=== PATIENT | male | born 1970 | race Caucasian/White ===

== ENCOUNTER 2019-07-21 20:57 | Emergency (ER) | payer SELFPAY ==
[~2019-07-21] VITALS: Ht 172.7 cm; Wt 65.9 kg
[2019-07-21] MEDS ORDERED: NS IV 1000 ML 1,000 ML IV SCH (21:15)
[2019-07-21 21:30] LABS: BASOPHILS % (AUTO) 0 % (0-10); EOSINOPHILS # (AUTO) 0.1 10^3/uL (0.0-0.3); EOSINOPHILS % (AUTO) 2 % (0-10); HEMATOCRIT 46 % (40-54); HEMOGLOBIN 15.3 G/DL (13.3-17.7); LYMPHOCYTES # (AUTO) 1.7 X 10^3 (1.0-4.0); LYMPHOCYTES % (AUTO) 25 % (12-44); MEAN CORPUSCULAR HEMOGLOBIN 33 PG (25-34); MEAN CORPUSCULAR HGB CONC 34 G/DL (32-36); MEAN CORPUSCULAR VOLUME 99 FL (80-99); MEAN PLATELET VOLUME 9.5 FL (7.4-10.4); MONOCYTES % (AUTO) 15 % (0-12); NEUTROPHILS # (AUTO) 3.9 X 10^3 (1.8-7.8); NEUTROPHILS % (AUTO) 58 % (42-75); PLATELET COUNT 329 10^3/uL (130-400); RED CELL DISTRIBUTION WIDTH 13.3 % (10.0-14.5); WHITE BLOOD COUNT 6.8 10^3/uL (4.3-11.0)
[2019-07-21] MEDS ORDERED: ANTACID SUSP 30 ML UDC (MYLANTA) PO ONE (21:45)
[2019-07-21] MEDS ORDERED: LIDOCAINE 2% VISCOUS 15 ML UDC PO ONE (21:45)
[2019-07-21 21:46] LABS: INR 0.9 (0.8-1.4); PROTHROMBIN TIME PATIENT 12.5 SEC (12.2-14.7)
[2019-07-21 21:48] LABS: ALANINE AMINOTRANSFERASE 51 U/L (0-55); ALBUMIN 3.9 GM/DL (3.2-4.5); ALKALINE PHOSPHATASE 90 U/L (40-136); BILIRUBIN,TOTAL 0.2 MG/DL (0.1-1.0); BUN/CREATININE RATIO 10; CALCIUM 7.9 MG/DL (8.5-10.1); CARBON DIOXIDE 21 MMOL/L (21-32); CHLORIDE 108 MMOL/L (98-107); CREATININE SERUM 0.82 MG/DL (0.60-1.30); GFR ESTIMATED > 60; GLUCOSE 106 MG/DL (70-105); LIPASE 182 U/L (8-78); POTASSIUM 3.6 MMOL/L (3.6-5.0); SODIUM 142 MMOL/L (135-145); TOTAL PROTEIN 6.3 GM/DL (6.4-8.2)
--- NOTE | 2019-07-21 21:50 | Diagnostic Imaging Report ---
PROCEDURE: CT abdomen and pelvis without contrast. TECHNIQUE: Multiple contiguous axial images were obtained through the abdomen and pelvis without the use of intravenous contrast. Auto Exposure Controls were utilized during the CT exam to meet ALARA standards for radiation dose reduction. INDICATION: Epigastric pain The liver, gallbladder and bile ducts are normal. The spleen, pancreas and adrenals are normal. The kidneys, ureters and bladder are normal. There are several mildly dilated loops of small bowel with mild mucosal edema involving the jejunum which may be secondary to an enteritis. No obstruction or perforation is evident. No acute abnormality of the colon is seen. There is no free intraperitoneal air or fluid. The appendix is normal. There is no acute bony abnormality. IMPRESSION: Mild enteritis of the jejunum. No other acute abnormality is seen. Dictated by: Dictated on workstation # [id number]
--- NOTE | 2019-07-21 22:01 | ED GI ---
General Chief Complaint: Abdominal/GI Problems Stated Complaint: RIB PAIN, STOMACH PAIN, PASSING OUT Nursing Triage Note: PT TO ED W/ FRIENDS FOR C/O "PASSING OUT". PT REPORTS HE HAS BEEN DRINKING BEER "ALL DAY" AND DOES THIS DAILY BUT TODAY "FEELS WORSE". ALSO C/O RIB PAIN BUT DENIES INJURY. Sepsis Screen: No Definite Risk Source of Information: Patient Exam Limitations: No Limitations History of Present Illness Date Seen by Provider: Jul 21, 2019 Time Seen by Provider: 21:55 Initial Comments To ER with reports of having passed out earlier today. His friend found him unresponsive on the floor, woke him up and brought into the emergency room. He has long been an alcoholic drinking about 6 "tall boys" per day. Over the past 2 weeks he has drank less because he has been working. Starting yesterday and today he's been drinking more including fireball and 8 tall boys today. He also has some epigastric/left lateral upper abdominal pain vomiting no nausea. Timing/Duration: 1-2 Days Severity/Quality: Moderate Location: Epigastric Radiation: No Radiation Activities at Onset: None Allergies and Home Medications Allergies Uncoded Allergies: IV CONTRAST (Allergy, Unknown, 07/21/19) Patient Home Medication List Home Medication List Reviewed: Yes Review of Systems Review of Systems Constitutional: see HPI EENTM: No Symptoms Reported Respiratory: No Symptoms Reported Cardiovascular: No Symptoms Reported Gastrointestinal: See HPI, Abdominal Pain Genitourinary: No Symptoms Reported Musculoskeletal: no symptoms reported Skin: no symptoms reported Endocrine: No Symptoms Reported Hematologic/Lymphatic: No Symptoms Reported Past Bqvkylx-Tudpoj-Iubtdj Hx Patient Social History Alcohol Use: Regular Use Number of Drinks Today: 8 Alcohol Beverage of Choice: Beer, Other Recreational Drug Use: No Smoking Status: Current Everyday Smoker Type Used: Cigarettes Recent Foreign Travel: No Contact w/Someone Who Travel: No Recent Infectious Disease Expo: No Physical Abuse: No Sexual Abuse: No Mistreated: No Past Medical History Surgeries: Yes Orthopedic Respiratory: No Cardiac: No Neurological: No Genitourinary: No Gastrointestinal: No Musculoskeletal: No Endocrine: No HEENT: No Cancer: No Psychosocial: No Integumentary: No Blood Disorders: No Physical Exam Vital Signs Vital Signs - First Documented 07/21/19 21:03 Temp 36.7 Pulse 94 Resp 20 B/P (MAP) 133/87 (102) Pulse Ox 98 O2 Delivery Room Air Capillary Refill : Less Than 3 Seconds Height/Weight/BMI Height: '" Weight: lbs. oz. kg; 22.00 BMI Method: General Appearance: WD/WN, no apparent distress HEENT: PERRL/EOMI, normal ENT inspection Respiratory: no respiratory distress, no accessory muscle use Gastrointestinal: normal bowel sounds, non tender, soft; No tenderness Extremities: normal range of motion, non-tender Neurologic/Psychiatric: alert, normal mood/affect, oriented x 3 Skin: normal color, warm/dry Progress/Results/Core Measures Results/Orders Lab Results Laboratory Tests Test 07/21/19 21:20 Range/Units White Blood Count 6.8 4.3-11.0 10^3/uL Red Blood Count 4.63 4.35-5.85 10^6/uL Hemoglobin 15.3 13.3-17.7 G/DL Hematocrit 46 40-54 % Mean Corpuscular Volume 99 80-99 FL Mean Corpuscular Hemoglobin 33 25-34 PG Mean Corpuscular Hemoglobin Concent 34 32-36 G/DL Red Cell Distribution Width 13.3 10.0-14.5 % Platelet Count 329 130-400 10^3/uL Mean Platelet Volume 9.5 7.4-10.4 FL Neutrophils (%) (Auto) 58 42-75 % Lymphocytes (%) (Auto) 25 12-44 % Monocytes (%) (Auto) 15 H 0-12 % Eosinophils (%) (Auto) 2 0-10 % Basophils (%) (Auto) 0 0-10 % Neutrophils # (Auto) 3.9 1.8-7.8 X 10^3 Lymphocytes # (Auto) 1.7 1.0-4.0 X 10^3 Monocytes # (Auto) 1.0 0.0-1.0 X 10^3 Eosinophils # (Auto) 0.1 0.0-0.3 10^3/uL Basophils # (Auto) 0.0 0.0-0.1 10^3/uL Prothrombin Time 12.5 12.2-14.7 SEC INR Comment 0.9 0.8-1.4 Sodium Level 142 135-145 MMOL/L Potassium Level 3.6 3.6-5.0 MMOL/L Chloride Level 108 H 98-107 MMOL/L Carbon Dioxide Level 21 21-32 MMOL/L Anion Gap 13 5-14 MMOL/L Blood Urea Nitrogen 8 7-18 MG/DL Creatinine 0.82 0.60-1.30 MG/DL Estimat Glomerular Filtration Rate > 60 BUN/Creatinine Ratio 10 Glucose Level 106 H 70-105 MG/DL Calcium Level 7.9 L 8.5-10.1 MG/DL Corrected Calcium 8.0 L 8.5-10.1 MG/DL Total Bilirubin 0.2 0.1-1.0 MG/DL Aspartate Amino Transf (AST/SGOT) 47 H 5-34 U/L Alanine Aminotransferase (ALT/SGPT) 51 0-55 U/L Alkaline Phosphatase 90 40-136 U/L Total Protein 6.3 L 6.4-8.2 GM/DL Albumin 3.9 3.2-4.5 GM/DL Lipase 182 H 8-78 U/L Serum Alcohol 341 *H <10 MG/DL My Orders Orders - CORA LAY MOWER SHARPENER Cbc With Automated Diff (07/21/19 21:13) Comprehensive Metabolic Panel (07/21/19 21:13) Lipase (07/21/19 21:13) Alcohol (07/21/19 21:13) Protime With Inr (07/21/19 21:13) Ed Iv/Invasive Line Start (07/21/19 21:13) Ns Iv 1000 Ml (Sodium Chloride 0.9%) (07/21/19 21:15) Antacid Suspension (Mylanta Suspension (07/21/19 21:45) Lidocaine 2% Viscous 15 Ml (Xylocaine Vi (07/21/19 21:45) Ct Abdomen/Pelvis Wo (07/21/19 21:31) Medications Given in ED Current Medications Medications Dose Ordered Sig/Reginald Route Start Time Stop Time Status Last Admin Dose Admin Al Hydrox/Mg Hydrox/Simethicone 30 ml ONCE ONCE PO 07/21/19 21:45 07/21/19 21:46 DC 07/21/19 21:36 30 ML Lidocaine HCl 10 ml ONCE ONCE PO 07/21/19 21:45 07/21/19 21:46 DC 07/21/19 21:36 10 ML Vital Signs/I&O 07/21/19 21:03 Temp 36.7 Pulse 94 Resp 20 B/P (MAP) 133/87 (102) Pulse Ox 98 O2 Delivery Room Air Blood Pressure Mean: 102 Departure Impression Primary Impression: Alcoholism Additional Impression: Alcohol intoxication Disposition: 01 HOME, SELF-CARE Condition: Stable Departure-Patient Inst. Decision time for Depature: 21:58 Referrals: NO,LOCAL PHYSICIAN (PCP/Family) Primary Care Physician Patient Instructions: Gastritis (DC) Add. Discharge Instructions: 1. [facility] Dr[facility] if you wish to discuss stopping the alcohol use, she can help facilitate this in the outpatient setting. 2. Return to ER for any worsening pain or other concerns. All discharge instructions reviewed with patient and/or family. Voiced understanding. CORA LAY APRN Jul 21, 2019 22:01
[2019-07-21 22:10] VITALS: BP 142/78
--- OUTSIDE RECORDS SUMMARY | 2019-07-22 22:09 | XMS REPORT | Continuity of Care Document ---
Demographics Preferred Language Unknown Marital Status Unknown Advent Affiliation Unknown Race Unknown Ethnic Group Unknown Author Organization Unknown Address Unknown Phone Unavailable Allergies There is no data. Medications There is no data. Problems There is no data. Procedures There is no data. Results Test Result Range Complete blood count (CBC) with automate d white blood cell (WBC) differential - 07/21/19 21:20 Blood leukocytes automated count (number/volume) 6.8 10*3/uL 4.3-11.0 Blood erythrocytes automated count (number/volume) 4.63 10*6/uL 4.35-5.85 Venous blood hemoglobin measurement (mass/volume) 15.3 g/dL 13.3-17.7 Blood hematocrit (volume fraction) 46 % 40-54 Automated erythrocyte mean corpuscular volume 99 [ foz_us] 80-99 Automated erythrocyte mean corpuscular h emoglobin (mass per erythrocyte) 33 pg 25-34 Automated erythrocyte mean corpuscular h emoglobin concentration measurement (mass/volume) 34 g/dL 32-36 Automated erythrocyte distribution width ratio 13. 3 % 10.0- 14.5 Automated blood platelet count (count/volume) 329 10*3/uL 130-400 Automated blood platelet mean volume measurement 9.5 [foz_us] 7.4-10.4 Automated blood neutrophils/100 leukocytes 58 % 42-75 Automated blood lymphocytes/100 leukocytes 25 % 12-44 Blood monocytes/100 leukocytes 15 % 0-12 Automated blood eosinophils/100 leukocytes 2 % 0-10 Automated blood basophils/100 leukocytes 0 % 0-10 Blood neutrophils automated count (number/volume) 3.9 10*3 1.8-7.8 Blood lymphocytes automated count (number/volume) 1.7 10*3 1.0-4.0 Blood monocytes automated count (number/volume) 1. 0 10*3 0.0-1.0 Automated eosinophil count 0.1 10*3/uL 0 .0-0.3 Automated blood basophil count (count/volume) 0.0 10*3/uL 0.0-0.1 Comprehensive metabolic panel - 07/21/19 21:20 Serum or plasma sodium measurement (moles/volume) 142 mmol/L 135-145 Serum or plasma potassium measurement (moles/volume) 3.6 mmol/L 3.6-5.0 Serum or plasma chloride measurement (moles/volume) 108 mmol/L 98-107 Carbon dioxide 21 mmol/L 21-32 Serum or plasma anion gap determination (moles/volume) 13 mmol/L 5-14 Serum or plasma urea nitrogen measurement (mass/volume ) 8 mg/dL 7-18 Serum or plasma creatinine measurement (mass/volume) 0.82 mg/dL 0.60-1.30 Serum or plasma urea nitrogen/creatinine mass ratio 10 NRG Serum or plasma creatinine measurement w ith calculation of estimated glomerular filtration rate > NRG Serum or plasma glucose measurement (mass/volume) 106 mg/dL 70-105 Serum or plasma calcium measurement (mass/volume) 7.9 mg/dL 8.5-10.1 Serum or plasma total bilirubin measurement (mass/volu me) 0.2 mg/dL 0.1-1.0 Serum or plasma alkaline phosphatase javier surement (enzymatic activity/volume) 90 U/L 40-136 Serum or plasma aspartate aminotransfera se measurement (enzymatic activity/volume) 47 U/L 5-34 Serum or plasma alanine aminotransferase measurement (enzymatic activity/volume) 51 U/L 0-55 Serum or plasma protein measurement (mass/volume) 6.3 g/dL 6.4-8.2 Serum or plasma albumin measurement (mass/volume) 3.9 g/dL 3.2-4.5 CALCIUM CORRECTED 8.0 mg/dL 8.5-10.1 Lipase - 07/21/19 21:20 Lipase 182 U/L 8-78 PT panel in platelet poor plasma by coag ulation assay - 07/21/19 21:20 Prothrombin time (PT) in platelet poor plasma by coagu lation assay 12.5 s 12.2-14.7 INR in platelet poor plasma or blood by coagulation as say 0.9 0.8-1.4 Serum or plasma ethanol measurement (mas s/volume) - 07/21/19 21:20 Serum or plasma ethanol measurement (mass/volume) 341 mg/dL <10 Encounters ACCT No. Visit Date/Time Discharge Status Pt. Type Provider Facility Loc./Unit Complaint [id number] 07/21/2019 21:33:00 Document Registration
== END 2019-07-21 22:10 | disposition home or self-care (01) ==
LOC: ER 21:00
DX: F10.229 Alcohol dependence with intoxication, unspecified (principal); F17.210 Nicotine dependence, cigarettes, uncomplicated; Z91.041 Radiographic dye allergy status; Y90.8 Blood alcohol level of 240 mg/100 ml or more
CPT/HCPCS: 36415; 74176; 80053; 80320; 83690; 85025; 85610

== ENCOUNTER 2020-04-11 09:51 | Emergency (ER) | payer SELFPAY ==
[~2020-04-11] VITALS: Ht 172.7 cm; Wt 63.5 kg
[2020-04-11 10:17] LABS: BASOPHILS # (AUTO) 0.1 10^3/uL (0.0-0.1); BASOPHILS % (AUTO) 1 % (0-10); EOSINOPHILS # (AUTO) 0.1 10^3/uL (0.0-0.3); EOSINOPHILS % (AUTO) 2 % (0-10); HEMATOCRIT 53 % (40-54); HEMOGLOBIN 18.2 g/dL (13.3-17.7); LYMPHOCYTES # (AUTO) 1.9 10^3/uL (1.0-4.0); LYMPHOCYTES % (AUTO) 37 % (12-44); MEAN CORPUSCULAR HEMOGLOBIN 34 pg (25-34); MEAN CORPUSCULAR HGB CONC 35 g/dL (32-36); MEAN CORPUSCULAR VOLUME 97 fL (80-99); MEAN PLATELET VOLUME 9.5 fL (9.0-12.2); MONOCYTES # (AUTO) 0.6 10^3/uL (0.0-1.0); MONOCYTES % (AUTO) 12 % (0-12); NEUTROPHILS # (AUTO) 2.4 10^3/uL (1.8-7.8); NEUTROPHILS % (AUTO) 48 % (42-75); PLATELET COUNT 358 10^3/uL (130-400)
[2020-04-11 10:21] LABS: ALBUMIN 4.2 GM/DL (3.2-4.5); CHLORIDE 102 MMOL/L (98-107); POTASSIUM 3.4 MMOL/L (3.6-5.0); SODIUM 143 MMOL/L (135-145)
[2020-04-11 10:23] LABS: CALCIUM 8.4 MG/DL (8.5-10.1)
[2020-04-11 10:24] LABS: GLUCOSE 122 MG/DL (70-105)
[2020-04-11 10:25] LABS: CARBON DIOXIDE 25 MMOL/L (21-32)
[2020-04-11 10:26] LABS: BILIRUBIN,TOTAL 0.3 MG/DL (0.1-1.0)
[2020-04-11 10:27] LABS: ALKALINE PHOSPHATASE 123 U/L (40-136); CREATININE SERUM 0.86 MG/DL (0.60-1.30); GFR ESTIMATED > 60
[2020-04-11 10:28] LABS: BUN/CREATININE RATIO 3
[2020-04-11 10:30] LABS: ALANINE AMINOTRANSFERASE 65 U/L (0-55); MAGNESIUM 2.3 MG/DL (1.6-2.4)
[2020-04-11] MEDS ORDERED: LORazepam INJ 2 MG/ML (ATIVAN) VIAL IVP ONE ×2 (10:30→13:30)
[2020-04-11] MEDS ORDERED: fentaNYL INJECTION 100 MCG/2 ML AMP IVP ONE (10:30)
[2020-04-11 10:51] LABS: AMPHETAMINE SCREEN, URINE NEGATIVE (NEGATIVE); BARBITURATE SCREEN URINE NEGATIVE (NEGATIVE); BENZODIAZEPINES SCREEN URINE NEGATIVE (NEGATIVE); CANNABINOID SCREEN, URINE POSITIVE (NEGATIVE); COCAINE SCREEN URINE NEGATIVE (NEGATIVE); METHADONE STAT NEGATIVE (NEGATIVE); METHAMPHETAMINE SCREEN URINE S NEGATIVE (NEGATIVE); OPIATE SCREEN URINE NEGATIVE (NEGATIVE); OXYCODONE STAT NEGATIVE (NEGATIVE); PROPOXYPHENE STAT NEGATIVE (NEGATIVE); TRICYCLIC ANTIDEPRESSANTS SCRE NEGATIVE (NEGATIVE)
--- NOTE | 2020-04-11 11:19 | Diagnostic Imaging Report ---
INDICATION: Chest pain. TECHNIQUE: Single view chest 11:08 AM. CORRELATION STUDY: None FINDINGS: The heart size, mediastinal configuration and pulmonary vascularity are within normal limits. The lungs are clear with no consolidating infiltrate. There is no significant effusion or pneumothorax. IMPRESSION: 1. Negative appearing portable chest. Dictated by: Dictated on workstation # [id number]
--- NOTE | 2020-04-11 12:08 | Diagnostic Imaging Report ---
PROCEDURE: CT head and CT cervical spine without contrast. TECHNIQUE: Multiple contiguous axial images were obtained through the brain and cervical spine without the use of intravenous contrast. Sagittal and coronal reformations through the cervical spine were then performed. Auto Exposure Controls were utilized during the CT exam to meet ALARA standards for radiation dose reduction. INDICATION: Found itself on floor earlier today. Left arm tingling. CORRELATION STUDY: None FINDINGS: CT HEAD: Ventricles and sulci are slightly prominent for the patient's age. There is no evidence for midline shift or mass effect. There is questionable subtle slight asymmetric low density within the left mirza. Otherwise, no evidence for edema. There is some generalized increased density in the intracranial vessels may reflect underlying hemoconcentration. No intracranial hemorrhage. Basilar cisterns are maintained. The bony calvarium appearing intact. Small cyst or polyp anterior left maxillary sinus. CT CERVICAL SPINE: Trace anterolisthesis C5 on C6. Slight loss of height C6 and to a lesser degree superior C7 endplate. Multilevel disc space narrowing is present. This is most pronounced C6-C7 level. Endplate spurring results in some osseous encroachment on neural foramina at this level as well as at the C5-C6 level. Asymmetric hypertrophic facet arthropathy. Odontoid intact. Lateral masses C1-C2 aligned. Lung apices with a small bullous emphysematous change. No apical pneumothorax. IMPRESSION: CT HEAD: 1. There is subtle low-attenuation left mirza. May be artifactual perhaps chronic. Definitive evidence for edema is not suggested. No intracranial hemorrhage. CT CERVICAL SPINE: 1. Negative for acute fracture or traumatic subluxation. Multiple cervical spondylosis. Most pronounced at C6-C7 level. Dictated by: Dictated on workstation # [id number]
--- NOTE | 2020-04-11 12:46 | Diagnostic Imaging Report ---
PROCEDURE: CT chest without contrast. TECHNIQUE: Multiple contiguous axial images were obtained through the chest without the use of intravenous contrast. Auto Exposure Controls were utilized during the CT exam to meet ALARA standards for radiation dose reduction. INDICATION: Chest pain. COMPARISON: Radiographs from the same day. FINDINGS: The heart is normal in size. There is no pericardial effusion. There is no mediastinal adenopathy. The aorta is normal in caliber. There is no axillary adenopathy. There is no pleural effusion or pneumothorax. There are mild emphysematous changes in the lungs. No central endobronchial lesions are seen. No masses or consolidations are seen. No acute osseous abnormality is seen. Imaged portions of the upper abdomen demonstrate no acute abnormality. IMPRESSION: 1. Mild emphysematous changes with no acute abnormality seen in the chest. Dictated by: Dictated on workstation # [id number]
--- NOTE | 2020-04-11 14:13 | ED Chest Pain ---
General Chief Complaint: Chest Pain Stated Complaint: CP, LEFT ARM NUMBNESS Nursing Triage Note: PT AMB TO RM 2 WITH COMPLAINT OF CHEST PAIN. UNKNOWN WHEN PAIN STARTED. STATES PASSED OUT LAST NIGHT AROUND 10PM. STATES LEFT ARM IS NUMB. PT DRINKS AT LEAST 6 TALL BOYS DAILY. Nursing Sepsis Screen: No Definite Risk Source: patient Exam Limitations: no limitations History of Present Illness Date Seen by Provider: Apr 11, 2020 Time Seen by Provider: 10:09 Initial Comments This 49-year-old man presents to the emergency room with complaints of left upper chest pain and left arm numbness. He reports he "passed out" on his floor last night and woke up face down at about 03: 00 this morning. He claims to have not had any alcohol yet today but does typically drink up to 12 tall cans of beer daily. He has had pain in the left upper chest previously which he attributed to a strained muscle. Pain is reproducible with palpation. It feels better when he is up and walking around and worse at rest. He denies any cough or fever. He denies any chronic health problems aside from alcohol dependence. He denies any other substance use. He does report some posterior neck pain and thinks he may have hit his head. C-collar was applied. Allergies and Home Medications Allergies Coded Allergies: codeine (Verified Allergy, Unknown, 04/11/20) Uncoded Allergies: IV CONTRAST (Allergy, Unknown, 07/21/19) Patient Home Medication List Home Medication List Reviewed: Yes Review of Systems Review of Systems Constitutional: no symptoms reported EENTM: No Symptoms Reported Respiratory: No Symptoms Reported Cardiovascular: See HPI Gastrointestinal: No Symptoms Reported Genitourinary: No Symptoms Reported Musculoskeletal: see HPI Skin: no symptoms reported Psychiatric/Neurological: See HPI Endocrine: No Symptoms Reported Hematologic/Lymphatic: No Symptoms Reported Past Eemepfa-Sgeaoo-Xcnkjb Hx Past Med/Social Hx: Reviewed Nursing Past Med/Soc Hx Patient Social History Alcohol Use: Regular Use Number of Drinks Today: II Alcohol Beverage of Choice: Beer, Other Recreational Drug Use: No Smoking Status: Current Everyday Smoker Type Used: Cigarettes Recent Foreign Travel: No Contact w/Someone Who Travel: No Recent Infectious Disease Expo: No Immunizations Up To Date Tetanus Booster (TDap): Unknown Past Medical History Surgeries: Yes Orthopedic Respiratory: No Cardiac: No Neurological: No Genitourinary: No Gastrointestinal: No Musculoskeletal: No Endocrine: No HEENT: No Cancer: No Psychosocial: No Integumentary: No Blood Disorders: No Physical Exam Vital Signs Vital Signs - First Documented 04/11/20 14:41 Pulse Ox 98 Capillary Refill : Less Than 3 Seconds Height, Weight, BMI Height: '" Weight: lbs. oz. kg; 21.00 BMI Method: General Appearance: No Apparent Distress, WD/WN, Thin HEENT: Normal ENT Inspection Neck: Normal Inspection, Tender Midline Respiratory: Lungs Clear, Normal Breath Sounds, No Accessory Muscle Use, No Respiratory Distress, Other (Upper left anterior chest wall tender to palpation) Cardiovascular: Regular Rate, Rhythm, No Edema, No Murmur, Normal Peripheral Pulses Gastrointestinal: Normal Bowel Sounds, Non Tender, Soft Extremity: Normal Inspection, Non Tender, No Pedal Edema Neurologic/Psychiatric: Alert, Oriented x3, No Motor/Sensory Deficits, Normal Mood/Affect, head of operation and logistics II-XII Norm as Tested Skin: Normal Color, Warm/Dry Progress/Results/Core Measures Results/Orders Lab Results Laboratory Tests Test 04/11/20 10:05 04/11/20 10:31 04/11/20 13:56 Range/Units White Blood Count 5.0 4.3-11.0 10^3/uL Red Blood Count 5.42 4.30-5.52 10^6/uL Hemoglobin 18.2 H 13.3-17.7 g/dL Hematocrit 53 40-54 % Mean Corpuscular Volume 97 80-99 fL Mean Corpuscular Hemoglobin 34 25-34 pg Mean Corpuscular Hemoglobin Concent 35 32-36 g/dL Red Cell Distribution Width 12.6 10.0-14.5 % Platelet Count 358 130-400 10^3/uL Mean Platelet Volume 9.5 9.0-12.2 fL Immature Granulocyte % (Auto) 0 % Neutrophils (%) (Auto) 48 42-75 % Lymphocytes (%) (Auto) 37 12-44 % Monocytes (%) (Auto) 12 0-12 % Eosinophils (%) (Auto) 2 0-10 % Basophils (%) (Auto) 1 0-10 % Neutrophils # (Auto) 2.4 1.8-7.8 10^3/uL Lymphocytes # (Auto) 1.9 1.0-4.0 10^3/uL Monocytes # (Auto) 0.6 0.0-1.0 10^3/uL Eosinophils # (Auto) 0.1 0.0-0.3 10^3/uL Basophils # (Auto) 0.1 0.0-0.1 10^3/uL Immature Granulocyte # (Auto) 0.0 0.0-0.1 10^3/uL Prothrombin Time 13.0 12.2-14.7 SEC INR Comment 1.0 0.8-1.4 Activated Partial Thromboplast Time 28 24-35 SEC D-Dimer < 0.27 0.00-0.49 UG/ML Sodium Level 143 135-145 MMOL/L Potassium Level 3.4 L 3.6-5.0 MMOL/L Chloride Level 102 98-107 MMOL/L Carbon Dioxide Level 25 21-32 MMOL/L Anion Gap 16 H 5-14 MMOL/L Blood Urea Nitrogen 3 L 7-18 MG/DL Creatinine 0.86 0.60-1.30 MG/DL Estimat Glomerular Filtration Rate > 60 BUN/Creatinine Ratio 3 Glucose Level 122 H 70-105 MG/DL Calcium Level 8.4 L 8.5-10.1 MG/DL Corrected Calcium 8.2 L 8.5-10.1 MG/DL Magnesium Level 2.3 1.6-2.4 MG/DL Total Bilirubin 0.3 0.1-1.0 MG/DL Aspartate Amino Transf (AST/SGOT) 78 H 5-34 U/L Alanine Aminotransferase (ALT/SGPT) 65 H 0-55 U/L Alkaline Phosphatase 123 40-136 U/L Myoglobin 35.9 10.0-92.0 NG/ML Troponin I < 0.028 < 0.028 <0.028 NG/ML C-Reactive Protein High Sensitivity 0.05 0.00-0.50 MG/DL Total Protein 7.0 6.4-8.2 GM/DL Albumin 4.2 3.2-4.5 GM/DL Serum Alcohol 271 H <10 MG/DL Urine Opiates Screen NEGATIVE NEGATIVE Urine Oxycodone Screen NEGATIVE NEGATIVE Urine Methadone Screen NEGATIVE NEGATIVE Urine Propoxyphene Screen NEGATIVE NEGATIVE Urine Barbiturates Screen NEGATIVE NEGATIVE Ur Tricyclic Antidepressants Screen NEGATIVE NEGATIVE Urine Phencyclidine Screen NEGATIVE NEGATIVE Urine Amphetamines Screen NEGATIVE NEGATIVE Urine Methamphetamines Screen NEGATIVE NEGATIVE Urine Benzodiazepines Screen NEGATIVE NEGATIVE Urine Cocaine Screen NEGATIVE NEGATIVE Urine Cannabinoids Screen POSITIVE H NEGATIVE My Orders Orders - KUSUM BAILEY MD Cbc With Automated Diff (04/11/20 10:10) Magnesium (04/11/20 10:10) Chest 1 View, Ap/Pa Only (04/11/20 10:10) Ekg Tracing (04/11/20 10:10) Comprehensive Metabolic Panel (04/11/20 10:10) Myoglobin Serum (04/11/20 10:10) Protime With Inr (04/11/20 10:10) Partial Thromboplastin Time (04/11/20 10:10) O2 (04/11/20 10:10) Monitor-Rhythm Ecg Trace Only (04/11/20 10:10) Ed Iv/Invasive Line Start (04/11/20 10:10) Troponin I (04/11/20 10:10) Ct Head/Cervical Spine Wo (04/11/20 10:18) Alcohol (04/11/20 10:18) Drug Screen Stat (Urine) (04/11/20 10:18) Fentanyl Injection (Sublimaze Injection (04/11/20 10:30) Lorazepam Injection (Ativan Injection) (04/11/20 10:30) Fibrin Degradation Products (04/11/20 10:19) Hs C Reactive Protein (04/11/20 10:27) Ct Chest Wo (04/11/20 11:28) Lorazepam Injection (Ativan Injection) (04/11/20 13:30) Troponin I (04/11/20 13:30) Medications Given in ED Current Medications Medications Dose Ordered Sig/Reginald Route Start Time Stop Time Status Last Admin Dose Admin Fentanyl Citrate 50 mcg ONCE ONCE IVP 04/11/20 10:30 04/11/20 10:31 DC 04/11/20 10:32 50 MCG Lorazepam 1 mg ONCE ONCE IVP 04/11/20 10:30 04/11/20 10:31 DC 04/11/20 10:32 1 MG Lorazepam 2 mg ONCE ONCE IVP 04/11/20 13:30 04/11/20 13:31 DC 04/11/20 13:24 2 MG Vital Signs/I&O 04/11/20 04/11/20 04/11/20 09:56 09:56 14:41 Temp 36.4 Pulse 92 82 Resp 17 17 B/P (MAP) 155/118 (130) 122/76 Pulse Ox 98 O2 Delivery Room Air Room Air Room Air Blood Pressure Mean: 130 Progress Progress Note #1: Time: 10:30 Progress Note C-collar was applied and labs and imaging studies were obtained. EKG was negative for ischemia. Patient appeared to possibly be an early withdraw. He was treated with fentanyl and Ativan. Progress Note #2: Time: 14:13 Progress Note C-collar was cleared after CT imaging was reviewed. No serious injuries were identified. Patient's numbness in the left arm has improved as has his chest pain. A repeat troponin is pending. I suspect patient had "beer drinkers palsy" paresthesias in the left upper extremity from lying in the facedown position on the floor while intoxicated. Alcohol level was still significantly elevated despite his assertion he has not had alcohol yet today. Chest pain seems to be noncardiac in nature as it is reproducible with palpation. I anticipate discharge if troponin is negative. Patient was given an additional 2 mg of Ativan due to worsening tremor probably due to withdrawal. Initial ECG Impression Date: Apr 11, 2020 Initial ECG Impression Time: 09:59 Initial ECG Rate: 96 Initial ECG Rhythm: Normal Sinus Initial ECG Intervals: Normal Initial ECG Impression: Normal Comment Normal sinus rhythm with no ST elevation or depression. No abnormal intervals or axis deviation. Diagnostic Imaging Diagonstic Imaging: Xray Plain Films/CT/US/NM/MRI: chest Comments NAME: TRISHA CHAUDHRY [facility] REC#: [id number] PT STATUS: REG ER : 1970 PHYSICIAN: KUSUM BAILEY MD ADMIT DATE: 04/11/20/ER Draft Date of Exam:04/11/20 CHEST 1 VIEW, AP/PA ONLY INDICATION: Chest pain. TECHNIQUE: Single view chest 11:08 AM. CORRELATION STUDY: None FINDINGS: The heart size, mediastinal configuration and pulmonary vascularity are within normal limits. The lungs are clear with no consolidating infiltrate. There is no significant effusion or pneumothorax. IMPRESSION: 1. Negative appearing portable chest. Dictated on workstation # [id number] Dict: 04/11/20 1118 Trans: 04/11/20 1118 DO [id number] Interpreted by: MANDY TOVAR DO Reviewed: Reviewed by Me Diagonstic Imaging: CT Plain Films/CT/US/NM/MRI: c-spine, head Comments NAME: TRISHA CHAUDHRY REC#: [id number] PT STATUS: REG ER : 1970 PHYSICIAN: KUSUM BAILEY MD ADMIT DATE: 04/11/20/ER Draft Date of Exam:04/11/20 CT HEAD/CERVICAL SPINE WO PROCEDURE: CT head and CT cervical spine without contrast. TECHNIQUE: Multiple contiguous axial images were obtained through the brain and cervical spine without the use of intravenous contrast. Sagittal and coronal reformations through the cervical spine were then performed. Auto Exposure Controls were utilized during the CT exam to meet ALARA standards for radiation dose reduction. INDICATION: Found itself on floor earlier today. Left arm tingling. CORRELATION STUDY: None FINDINGS: CT HEAD: Ventricles and sulci are slightly prominent for the patient's age. There is no evidence for midline shift or mass effect. There is questionable subtle slight asymmetric low density within the left mirza. Otherwise, no evidence for edema. There is some generalized increased density in the intracranial vessels may reflect underlying hemoconcentration. No intracranial hemorrhage. Basilar cisterns are maintained. The bony calvarium appearing intact. Small cyst or polyp anterior left maxillary sinus. CT CERVICAL SPINE: Trace anterolisthesis C5 on C6. Slight loss of height C6 and to a lesser degree superior C7 endplate. Multilevel disc space narrowing is present. This is most pronounced C6-C7 level. Endplate spurring results in some osseous encroachment on neural foramina at this level as well as at the C5-C6 level. Asymmetric hypertrophic facet arthropathy. Odontoid intact. Lateral masses C1-C2 aligned. Lung apices with a small bullous emphysematous change. No apical pneumothorax. IMPRESSION: CT HEAD: 1. There is subtle low-attenuation left mirza. May be artifactual perhaps chronic. Definitive evidence for edema is not suggested. No intracranial hemorrhage. CT CERVICAL SPINE: 1. Negative for acute fracture or traumatic subluxation. Multiple cervical spondylosis. Most pronounced at C6-C7 level. Dictated on workstation # [id number] Dict: 04/11/20 1155 Trans: 04/11/20 1207 ANTOINE [id number] Interpreted by: MANDY TOVAR DO Reviewed: Reviewed by Me Diagonstic Imaging: CT Plain Films/CT/US/NM/MRI: chest Comments NAME: TRISHA CHAUDHRY REC#: [id number] PT STATUS: REG ER : 1970 PHYSICIAN: KUSUM BAILEY MD ADMIT DATE: 04/11/20/ER Draft Date of Exam:04/11/20 CT CHEST WO PROCEDURE: CT chest without contrast. TECHNIQUE: Multiple contiguous axial images were obtained through the chest without the use of intravenous contrast. Auto Exposure Controls were utilized during the CT exam to meet ALARA standards for radiation dose reduction. INDICATION: Chest pain. COMPARISON: Radiographs from the same day. FINDINGS: The heart is normal in size. There is no pericardial effusion. There is no mediastinal adenopathy. The aorta is normal in caliber. There is no axillary adenopathy. There is no pleural effusion or pneumothorax. There are mild emphysematous changes in the lungs. No central endobronchial lesions are seen. No masses or consolidations are seen. No acute osseous abnormality is seen. Imaged portions of the upper abdomen demonstrate no acute abnormality. IMPRESSION: 1. Mild emphysematous changes with no acute abnormality seen in the chest. Dictated on workstation # [id number] Dict: 04/11/20 1240 Trans: 04/11/20 1245 [facility] [id number] Interpreted by: JOAO VAIL MD Departure Impression Primary Impression: Atypical chest pain Additional Impressions: Paresthesia of left arm Alcohol dependence Qualified Codes: F10.29 - Alcohol dependence with unspecified alcohol- induced disorder Alcohol withdrawal Qualified Codes: F10.239 - Alcohol dependence with withdrawal, unspecified Disposition: 01 HOME, SELF-CARE Condition: Improved Departure-Patient Inst. Referrals: NO,LOCAL PHYSICIAN (PCP/Family) Primary Care Physician Patient Instructions: ALCOHOL AND SUBSTANCE ABUSE, Alcohol Withdrawal Add. Discharge Instructions: Gradually and progressively reduce your alcohol consumption but avoid abruptly stopping alcohol completely. Doing so may cause life-threatening withdrawals. Follow-up with a primary care provider soon as possible. Seek assistance with alcohol cessation through your primary care provider and/or through other resources such as AA. Return to the emergency room if you have worsening symptoms. All discharge instructions reviewed with patient and/or family. Voiced understanding. KUSUM BAILEY MD Apr 11, 2020 14:13
[2020-04-11 14:41] VITALS: BP 122/76
== END 2020-04-11 14:41 | disposition home or self-care (01) ==
LOC: EDUNIT# 09:51 → ER 09:53
DX: R07.89 Other chest pain (principal); R20.2 Paresthesia of skin; F10.239 Alcohol dependence with withdrawal, unspecified; F17.210 Nicotine dependence, cigarettes, uncomplicated; Z88.5 Allergy status to narcotic agent; Z91.041 Radiographic dye allergy status
CPT/HCPCS: 70450; 71045; 71250; 72125; 80053; 80306; 83735; 83874; 84484; 85025; 85379; 85610; 85730; 86141; 93041; 99284; G0480; 36415; 80320

== ENCOUNTER 2020-04-22 16:33 | Emergency (ER) | payer SELFPAY ==
[~2020-04-22] VITALS: Ht 172.7 cm; Wt 63.5 kg
--- NOTE | 2020-04-22 16:47 | ED General ---
General Stated Complaint: HEAD INJ Source of Information: Patient Exam Limitations: No Limitations History of Present Illness Date Seen by Provider: Apr 22, 2020 Time Seen by Provider: 16:46 Initial Comments To ER by private vehicle with reports that he passed out for unknown reasons about 8 hours ago and was on the floor for 8 hours before his friend found him. He drinks 4 tall boys of beer daily and he drinks 4 double shots of whiskey daily. No fevers or chills. He did not have anything to drink yesterday or today. He took a few shots just before coming to ER "just to take the edge off". No fevers or chills. Timing/Duration: 1-2 Days Severity: Moderate Associated Systoms: Denies Symptoms Allergies and Home Medications Allergies Coded Allergies: codeine (Verified Allergy, Unknown, 04/11/20) Uncoded Allergies: IV CONTRAST (Allergy, Unknown, 07/21/19) Patient Home Medication List Home Medication List Reviewed: Yes Review of Systems Review of Systems Constitutional: see HPI EENTM: see HPI Respiratory: no symptoms reported Cardiovascular: no symptoms reported Genitourinary: no symptoms reported Musculoskeletal: no symptoms reported Skin: no symptoms reported Psychiatric/Neurological: No Symptoms Reported Hematologic/Lymphatic: No Symptoms Reported Immunological/Allergic: no symptoms reported Past Gmsvgez-Rmxbyh-Guumuc Hx Patient Social History Alcohol Beverage of Choice: Beer, Other Type Used: Cigarettes 2nd Hand Smoke Exposure: Yes Immunizations Up To Date Tetanus Booster (TDap): Unknown Past Medical History Surgeries: Yes Orthopedic Respiratory: No Cardiac: No Neurological: No Genitourinary: No Gastrointestinal: No Musculoskeletal: No Endocrine: No HEENT: No Cancer: No Psychosocial: No Integumentary: No Blood Disorders: No Physical Exam Vital Signs Vital Signs - First Documented 04/22/20 16:35 Temp 36.8 Pulse 109 Resp 22 B/P (MAP) 151/129 (136) Pulse Ox 94 O2 Delivery Room Air Capillary Refill : Height, Weight, BMI Height: '" Weight: lbs. oz. kg; 22.00 BMI Method: General Appearance: No Apparent Distress, WD/WN, Other (Alert oriented stuttering speech complains of some central chest pain sharp in nature for 3 hours) Eyes: Bilateral Eye Normal Inspection, Bilateral Eye PERRL, Bilateral Eye EOMI HEENT: PERRL/EOMI, TMs Normal Neck: Full Range of Motion, Normal Inspection Respiratory: No Accessory Muscle Use, No Respiratory Distress Cardiovascular: Regular Rate, Rhythm, Normal Peripheral Pulses Gastrointestinal: Normal Bowel Sounds, Non Tender, Soft Extremity: Normal Capillary Refill, Normal Inspection Neurologic/Psychiatric: Alert, Oriented x3 Skin: Normal Color, Warm/Dry Progress/Results/Core Measures Suspected Sepsis SIRS Temperature: Pulse: Respiratory Rate: Laboratory Tests 04/22/20 16:40: White Blood Count 5.9 Blood Pressure / Mean: Laboratory Tests 04/22/20 16:40: Creatinine 0.86, INR Comment 0.9, Platelet Count 152, Total Bilirubin 0.6 Results/Orders Lab Results Laboratory Tests Test 04/22/20 16:40 04/22/20 17:58 Range/Units White Blood Count 5.9 4.3-11.0 10^3/uL Red Blood Count 5.37 4.30-5.52 10^6/uL Hemoglobin 18.1 H 13.3-17.7 g/dL Hematocrit 52 40-54 % Mean Corpuscular Volume 96 80-99 fL Mean Corpuscular Hemoglobin 34 25-34 pg Mean Corpuscular Hemoglobin Concent 35 32-36 g/dL Red Cell Distribution Width 13.0 10.0-14.5 % Platelet Count 152 130-400 10^3/uL Mean Platelet Volume 9.1 9.0-12.2 fL Immature Granulocyte % (Auto) 0 % Neutrophils (%) (Auto) 61 42-75 % Lymphocytes (%) (Auto) 26 12-44 % Monocytes (%) (Auto) 12 0-12 % Eosinophils (%) (Auto) 1 0-10 % Basophils (%) (Auto) 1 0-10 % Neutrophils # (Auto) 3.6 1.8-7.8 10^3/uL Lymphocytes # (Auto) 1.5 1.0-4.0 10^3/uL Monocytes # (Auto) 0.7 0.0-1.0 10^3/uL Eosinophils # (Auto) 0.0 0.0-0.3 10^3/uL Basophils # (Auto) 0.0 0.0-0.1 10^3/uL Immature Granulocyte # (Auto) 0.0 0.0-0.1 10^3/uL Prothrombin Time 13.0 12.2-14.7 SEC INR Comment 0.9 0.8-1.4 Sodium Level 141 135-145 MMOL/L Potassium Level 3.7 3.6-5.0 MMOL/L Chloride Level 101 98-107 MMOL/L Carbon Dioxide Level 23 21-32 MMOL/L Anion Gap 17 H 5-14 MMOL/L Blood Urea Nitrogen 4 L 7-18 MG/DL Creatinine 0.86 0.60-1.30 MG/DL Estimat Glomerular Filtration Rate > 60 BUN/Creatinine Ratio 5 Glucose Level 137 H 70-105 MG/DL Calcium Level 8.4 L 8.5-10.1 MG/DL Corrected Calcium 8.2 L 8.5-10.1 MG/DL Total Bilirubin 0.6 0.1-1.0 MG/DL Aspartate Amino Transf (AST/SGOT) 131 H 5-34 U/L Alanine Aminotransferase (ALT/SGPT) 78 H 0-55 U/L Alkaline Phosphatase 184 H 40-136 U/L Total Creatine Kinase 180 30-200 U/L Troponin I < 0.028 <0.028 NG/ML Total Protein 7.4 6.4-8.2 GM/DL Albumin 4.2 3.2-4.5 GM/DL Serum Alcohol 356 *H <10 MG/DL Urine Color YELLOW Urine Clarity CLEAR Urine pH 6.0 5-9 Urine Specific [place] 1.010 L 1.016-1.022 Urine Protein NEGATIVE NEGATIVE Urine Glucose (UA) NEGATIVE NEGATIVE Urine Ketones TRACE H NEGATIVE Urine Nitrite NEGATIVE NEGATIVE Urine Bilirubin NEGATIVE NEGATIVE Urine Urobilinogen 0.2 < = 1.0 MG/DL Urine Leukocyte Esterase NEGATIVE NEGATIVE Urine RBC (Auto) NEGATIVE NEGATIVE Urine RBC NONE /HPF Urine WBC NONE /HPF Urine Crystals PRESENT H /LPF Urine Amorphous Sediment RARE BJ URATES H /LPF Urine Bacteria NEGATIVE /HPF Urine Casts NONE /LPF Urine Mucus NEGATIVE /LPF Urine Culture Indicated NO Urine Opiates Screen NEGATIVE NEGATIVE Urine Oxycodone Screen NEGATIVE NEGATIVE Urine Methadone Screen NEGATIVE NEGATIVE Urine Propoxyphene Screen NEGATIVE NEGATIVE Urine Barbiturates Screen NEGATIVE NEGATIVE Ur Tricyclic Antidepressants Screen NEGATIVE NEGATIVE Urine Phencyclidine Screen NEGATIVE NEGATIVE Urine Amphetamines Screen NEGATIVE NEGATIVE Urine Methamphetamines Screen NEGATIVE NEGATIVE Urine Benzodiazepines Screen NEGATIVE NEGATIVE Urine Cocaine Screen NEGATIVE NEGATIVE Urine Cannabinoids Screen POSITIVE H NEGATIVE My Orders Orders - CORA LAY APRN Ct Head Wo (04/22/20 16:34) Ua Culture If Indicated (04/22/20 16:34) Drug Screen Stat (Urine) (04/22/20 16:34) Alcohol (04/22/20 16:34) Cbc With Automated Diff (04/22/20 16:34) Comprehensive Metabolic Panel (04/22/20 16:34) Ed Iv/Invasive Line Start (04/22/20 16:34) Ekg Tracing (04/22/20 16:34) Creatine Kinase (04/22/20 16:34) Protime With Inr (04/22/20 16:40) Troponin I (04/22/20 16:45) Ns Iv 1000 Ml (Sodium Chloride 0.9%) (04/22/20 17:00) Ct Cervical Spine Wo (04/22/20 17:53) Ct Cervical Spine Wo (04/22/20 18:39) Vital Signs/I&O 04/22/20 16:35 Temp 36.8 Pulse 109 Resp 22 B/P (MAP) 151/129 (136) Pulse Ox 94 O2 Delivery Room Air Capillary Refill : Departure Impression Primary Impression: Alcohol dependence Disposition: 01 HOME, SELF-CARE Condition: Stable Departure-Patient Inst. Referrals: NO,LOCAL PHYSICIAN (PCP/Family) Primary Care Physician Patient Instructions: Alcohol Use - When Is Drinking a Problem? Add. Discharge Instructions: 1. REturn to Er for any concerns 2 CORA LAY [employer] Apr 22, 2020 16:47
[2020-04-22 16:53] LABS: BASOPHILS % (AUTO) 1 % (0-10); EOSINOPHILS % (AUTO) 1 % (0-10); HEMATOCRIT 52 % (40-54); HEMOGLOBIN 18.1 g/dL (13.3-17.7); LYMPHOCYTES # (AUTO) 1.5 10^3/uL (1.0-4.0); LYMPHOCYTES % (AUTO) 26 % (12-44); MEAN CORPUSCULAR HEMOGLOBIN 34 pg (25-34); MEAN CORPUSCULAR HGB CONC 35 g/dL (32-36); MEAN CORPUSCULAR VOLUME 96 fL (80-99); MEAN PLATELET VOLUME 9.1 fL (9.0-12.2); MONOCYTES # (AUTO) 0.7 10^3/uL (0.0-1.0); MONOCYTES % (AUTO) 12 % (0-12); NEUTROPHILS # (AUTO) 3.6 10^3/uL (1.8-7.8); NEUTROPHILS % (AUTO) 61 % (42-75); PLATELET COUNT 152 10^3/uL (130-400); WHITE BLOOD COUNT 5.9 10^3/uL (4.3-11.0)
[2020-04-22] MEDS ORDERED: NS IV 1000 ML 1,000 ML IV SCH (17:00)
[2020-04-22 17:03] LABS: ALBUMIN 4.2 GM/DL (3.2-4.5)
[2020-04-22 17:04] LABS: CHLORIDE 101 MMOL/L (98-107); POTASSIUM 3.7 MMOL/L (3.6-5.0); SODIUM 141 MMOL/L (135-145)
[2020-04-22 17:05] LABS: CALCIUM 8.4 MG/DL (8.5-10.1); INR 0.9 (0.8-1.4)
[2020-04-22 17:06] LABS: GLUCOSE 137 MG/DL (70-105); TOTAL PROTEIN 7.4 GM/DL (6.4-8.2)
[2020-04-22 17:07] LABS: CARBON DIOXIDE 23 MMOL/L (21-32)
[2020-04-22 17:08] LABS: BILIRUBIN,TOTAL 0.6 MG/DL (0.1-1.0)
--- NOTE | 2020-04-22 17:08 | Diagnostic Imaging Report ---
PROCEDURE: CT head without contrast. TECHNIQUE: Multiple contiguous axial images were obtained through the brain without the use of intravenous contrast. Auto Exposure Controls were utilized during the CT exam to meet ALARA standards for radiation dose reduction. INDICATION: Fall striking the head, now with difficulty with speech. COMPARISON: Head CT compared to 04/11/2020. FINDINGS: There is no hemorrhage, hydrocephalus, edema, mass, mass effect, or evidence for elevation of the intracranial pressures. There is no hemo-sinus and no calvarial fracture deformity. IMPRESSION: Stable unremarkable CT head. Dictated by: Dictated on workstation # [id number]
[2020-04-22 17:09] LABS: ALKALINE PHOSPHATASE 184 U/L (40-136)
[2020-04-22 17:10] LABS: CREATININE SERUM 0.86 MG/DL (0.60-1.30); GFR ESTIMATED > 60
[2020-04-22 17:11] LABS: BUN/CREATININE RATIO 5
[2020-04-22 17:13] LABS: ALANINE AMINOTRANSFERASE 78 U/L (0-55); CREATINE KINASE 180 U/L (30-200)
[2020-04-22 18:08] LABS: BILIRUBIN,URINE NEGATIVE (NEGATIVE); CLARITY,URINE CLEAR; COLOR,URINE YELLOW; GLUCOSE, URINE (UA) NEGATIVE (NEGATIVE); KETONES,URINE TRACE (NEGATIVE); LEUKOCYTE ESTERASE ,URINE NEGATIVE (NEGATIVE); NITRITE,URINE NEGATIVE (NEGATIVE); PROTEIN,URINE NEGATIVE (NEGATIVE)
[2020-04-22 18:33] LABS: AMPHETAMINE SCREEN, URINE NEGATIVE (NEGATIVE); BARBITURATE SCREEN URINE NEGATIVE (NEGATIVE); BENZODIAZEPINES SCREEN URINE NEGATIVE (NEGATIVE); CANNABINOID SCREEN, URINE POSITIVE (NEGATIVE); COCAINE SCREEN URINE NEGATIVE (NEGATIVE); METHADONE STAT NEGATIVE (NEGATIVE); METHAMPHETAMINE SCREEN URINE S NEGATIVE (NEGATIVE); OPIATE SCREEN URINE NEGATIVE (NEGATIVE); OXYCODONE STAT NEGATIVE (NEGATIVE); PROPOXYPHENE STAT NEGATIVE (NEGATIVE); TRICYCLIC ANTIDEPRESSANTS SCRE NEGATIVE (NEGATIVE)
--- NOTE | 2020-04-22 18:33 | Diagnostic Imaging Report ---
PROCEDURE: CT cervical spine without contrast. TECHNIQUE: Multiple contiguous axial images were obtained through the cervical spine without the use of intravenous contrast. Sagittal and coronal reformations were then performed. Auto Exposure Controls were utilized during the CT exam to meet ALARA standards for radiation dose reduction. INDICATION: Trauma. Fall. Right-sided neck pain. Numbness. COMPARISON: 04/11/2020 FINDINGS: Evaluation of the static alignment of the cervical spine shows slight reversal of normal lordotic curvature. Findings may relate to patient positioning, as well as spasm. There is no significant anteroretrolisthesis. There is no evidence of jumped facets. Vertebral body heights are maintained. There is no acute fracture. No bony fragments are seen within the spinal canal. There are mild to moderate multilevel degenerative changes consisting of intervertebral disc height loss with multilevel anterior and posterior disc osteophyte complex formations. Pre and paravertebral soft tissue structures are unremarkable. Included portions of the lung apices show no additional acute abnormalities. IMPRESSION: 1. No acute fracture or dislocation of the cervical spine. Dictated on workstation # [id number]
[2020-04-22 18:38] LABS: AMORPHOUS SEDIMENT,UR RARE AMOR URATES /LPF; BACTERIA,URINE NEGATIVE /HPF
[2020-04-22 18:50] VITALS: BP 147/119
--- NOTE | 2020-04-22 18:51 | Diagnostic Imaging Report ---
PROCEDURE: CT cervical spine without contrast. TECHNIQUE: Multiple contiguous axial images were obtained through the cervical spine without the use of intravenous contrast. Sagittal and coronal reformations were then performed. Auto Exposure Controls were utilized during the CT exam to meet ALARA standards for radiation dose reduction. INDICATION: Neck pain, loss of memory. The exam compared 04/11/2020 FINDINGS: Reconstruction views reveal stable cervical body heights in stable alignment. Degenerative disc space narrowing chronic and most severe at the C6-C7 level, stable. No evidence for paravertebral hemorrhage. No cervical fracture or facet joint dislocation. Bulky multilevel hypertrophic facet arthrosis chronic. The visualized central skull base appeared unremarkable. There is cervical carotid atherosclerotic vascular calcifications. IMPRESSION: Chronic degenerative changes without fracture or traumatic malalignment. Dictated by: Dictated on workstation # [id number]
== END 2020-04-22 18:50 | disposition home or self-care (01) ==
LOC: EDUNIT# 16:33 → ER 16:35
DX: F10.20 Alcohol dependence, uncomplicated (principal); Z88.5 Allergy status to narcotic agent; Z91.041 Radiographic dye allergy status; Z77.22 Contact with and (suspected) exposure to environmental tobacco smoke (acute) (chronic)
CPT/HCPCS: 70450; 72125; 80053; 80306; 81000; 82550; 84484; 85025; 85610; 99284; G0480; 36415; 80320

== ENCOUNTER 2020-06-27 22:02 | Emergency (ER) | payer SELFPAY ==
[~2020-06-27] VITALS: Ht 173 cm; Wt 64.0 kg
--- NOTE | 2020-06-27 22:18 | ED Upper Extremity ---
General Chief Complaint: Upper Extremity Stated Complaint: L HAND 4TH FINGER BROKEN / INTOXICATION Source: patient Exam Limitations: intoxication History of Present Illness Date Seen by Provider: Jun 27, 2020 Time Seen by Provider: 22:08 Initial Comments Patient arrives to the ER by private conveyance with significant other and chief complaint he has his left hand fourth digit displaced. He does not recall how it happened. He says been drinking lateral ice all night. He says he drinks every night. He is not having any pain anywhere else. Allergies and Home Medications Allergies Coded Allergies: codeine (Verified Allergy, Unknown, 04/11/20) Uncoded Allergies: IV CONTRAST (Allergy, Unknown, 07/21/19) Patient Home Medication List Home Medication List Reviewed: Yes Review of Systems Constitutional: No chills, No diaphoresis EENTM: No ear discharge, No ear pain Respiratory: No cough, No short of breath Cardiovascular: No edema, No palpitations Gastrointestinal: No abdominal pain, No nausea, No vomiting Genitourinary: No discharge, No dysuria All Other Systems Reviewed Negative Unless Noted: Yes Past Qlliaku-Iockdd-Anessh Hx Patient Social History Alcohol Use: Regular Use Alcohol Beverage of Choice: Beer, Other Drug of Choice: 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 Smoking Status: Current Everyday Smoker Type Used: Cigarettes 2nd Hand Smoke Exposure: Yes Immunizations Up To Date Tetanus Booster (TDap): Unknown Past Medical History Surgeries: Yes Orthopedic Respiratory: No Cardiac: No Neurological: No Genitourinary: No Gastrointestinal: No Musculoskeletal: No Endocrine: No HEENT: No Cancer: No Psychosocial: No Integumentary: No Blood Disorders: No Physical Exam Vital Signs Vital Signs - First Documented 06/27/20 22:08 Temp 36.0 Pulse 128 Resp 20 B/P (MAP) 134/81 (98) Pulse Ox 96 O2 Delivery Room Air Capillary Refill : Height, Weight, BMI Height: '" Weight: lbs. oz. kg; 21.00 BMI Method: General Appearance: WD/WN, mild distress HEENT: PERRL/EOMI (3 mm bilateral, reactive symmetric without raccoon eyes), TMs normal (Negative for douglas sign), pharynx normal, other (Atraumatic head) Neck: non-tender, full range of motion, normal inspection Cardiovascular: normal peripheral pulses, regular rate, rhythm Respiratory: no respiratory distress, no accessory muscle use Hand: Left, limited ROM (Fourth digit is dislocated at the middle interphalangeal joint), swelling Neurologic/Psychiatric: alert, normal mood/affect, oriented x 3 Skin: normal color, warm/dry, other (Skin of the left hand is intact.) Procedures/Interventions Splinting and Joint Reduction : Location: Left hand fourth digit MIP Pre-Proc Neuro Vasc Exam: normal Post-Proc Neuro Vasc Exam: normal, unchanged from pre-exam Pre-Procedure NV Exam: Yes post joint reduction film: joint reduced Progress Using standard technique we cleaned the skin with chlorhexidine and applied a digital block to the fourth digit. When that had taken hold we gave gentle traction to the finger and it easily reduced. After this he had full range of motion extension and flexion in the digit. Plan to francisca tape the fingers together. Progress/Results/Core Measures Results/Orders My Orders Orders - BLANQUITA COSTA Ct Head/Cervical Spine Wo (06/27/20 22:12) Finger(S) (06/27/20 22:12) Vital Signs/I&O 06/27/20 06/27/20 22:08 23:05 Temp 36.0 36.1 Pulse 128 100 Resp 20 18 B/P (MAP) 134/81 (98) 132/80 (98) Pulse Ox 96 98 O2 Delivery Room Air Room Air Progress Progress Note : Time: 22:16 Progress Note Because of his apparent alcohol intoxication we will get a CT of his head and C-spine. We will get a x-ray of his left fingers and reduce as appropriate. He says he is not feeling any pain right now so we should be able to reduce him with local anesthesia only. Diagnostic Imaging Diagonstic Imaging: CT Plain Films/CT/US/NM/MRI: c-spine, head Comments No acute infarct, hemorrhage, mass or edema. No acute fracture or traumatic malalignment. Reviewed: Reviewed Night Brice Study, Reviewed by Me Diagonstic Imaging: Xray Plain Films/CT/US/NM/MRI: hand (Left fingers) Comments No acute osseous fracture. Left hand fourth digit MIP dislocation. Reviewed: Reviewed by Me Departure Impression Primary Impression: Finger dislocation Qualified Codes: S63.259A - Unspecified dislocation of unspecified finger, initial encounter Additional Impression: Alcohol dependence Qualified Codes: F10.29 - Alcohol dependence with unspecified alcohol- induced disorder Disposition: HOME, SELF-CARE Condition: Improved Departure-Patient Inst. Decision time for Depature: 22:59 Referrals: TONG THOMPSON,LOCAL PHYSICIAN (PCP) Primary Care Physician Patient Instructions: Finger Dislocation (DC) Add. Discharge Instructions: Apply ice every 2 hours while awake for 20 minutes for the first 2 days. Keep the finger francisca taped your adjacent finger for the next 1 to 2 weeks. Follow-up with the hand surgeon, Dr. Thompson if you are having difficulty moving your finger within the next 1 to 2 weeks. Tylenol and ibuprofen as necessary for pain. All discharge instructions reviewed with patient and/or family. Voiced understanding. Copy Copies To 1: TONG THOMPSON DO JULISSABLANQUITA CHI Jun 27, 2020 22:17
[2020-06-27 23:05] VITALS: BP 132/80
--- NOTE | 2020-06-28 05:09 | Diagnostic Imaging Report ---
EXAMINATION: Left fingers at 1039 PM INDICATION: Injury 3 views were obtained. There are no prior studies available for comparison. There has been dislocation of the PIP joint of the 4th digit. The dislocated middle phalanx lies at nearly 90 degrees to the head of the proximal phalanx. The middle and distal phalanges are directed medially. There is no fracture or acute bony abnormality identified. The soft tissues are unremarkable. IMPRESSION: 1. There has been a dislocation of the PIP joint of the 4th digit. There is no fracture identified. 2. A follow-up exam after reduction would be recommended. Dictated by: Dictated on workstation # [id number]
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
== END 2020-06-27 23:08 | disposition home or self-care (01) ==
LOC: EDUNIT# 22:02 → ER 22:05
DX: S63.275A Dislocation of unspecified interphalangeal joint of left ring finger, initial encounter (principal); F10.20 Alcohol dependence, uncomplicated; F17.210 Nicotine dependence, cigarettes, uncomplicated; Z88.5 Allergy status to narcotic agent; Z91.041 Radiographic dye allergy status; X58.XXXA Exposure to other specified factors, initial encounter
CPT/HCPCS: 26770; 29130; 70450; 72125; 73140

== ENCOUNTER 2020-11-22 10:07 | Emergency (ER) | payer SELFPAY ==
[~2020-11-22] VITALS: Ht 172 cm; Wt 63.0 kg
[2020-11-22 10:31] LABS: BASOPHILS % (AUTO) 1 % (0-10); EOSINOPHILS # (AUTO) 0.1 10^3/uL (0.0-0.3); EOSINOPHILS % (AUTO) 2 % (0-10); HEMATOCRIT 45 % (40-54); HEMOGLOBIN 15.2 g/dL (13.3-17.7); LYMPHOCYTES # (AUTO) 1.6 10^3/uL (1.0-4.0); LYMPHOCYTES % (AUTO) 21 % (12-44); MEAN CORPUSCULAR HEMOGLOBIN 34 pg (25-34); MEAN CORPUSCULAR HGB CONC 34 g/dL (32-36); MEAN CORPUSCULAR VOLUME 100 fL (80-99); MEAN PLATELET VOLUME 10.6 fL (9.0-12.2); MONOCYTES # (AUTO) 0.6 10^3/uL (0.0-1.0); MONOCYTES % (AUTO) 8 % (0-12); NEUTROPHILS # (AUTO) 5.4 10^3/uL (1.8-7.8); NEUTROPHILS % (AUTO) 69 % (42-75); PLATELET COUNT 294 10^3/uL (130-400); WHITE BLOOD COUNT 7.9 10^3/uL (4.3-11.0)
[2020-11-22 10:35] LABS: ALBUMIN 3.6 GM/DL (3.2-4.5); CHLORIDE 110 MMOL/L (98-107); POTASSIUM 3.4 MMOL/L (3.6-5.0); SODIUM 147 MMOL/L (135-145)
[2020-11-22 10:36] LABS: CALCIUM 8.5 MG/DL (8.5-10.1)
[2020-11-22 10:37] LABS: GLUCOSE 103 MG/DL (70-105)
[2020-11-22 10:38] LABS: TOTAL PROTEIN 6.1 GM/DL (6.4-8.2)
[2020-11-22 10:39] LABS: BILIRUBIN,TOTAL 0.3 MG/DL (0.1-1.0); CARBON DIOXIDE 19 MMOL/L (21-32)
[2020-11-22 10:41] LABS: ALKALINE PHOSPHATASE 65 U/L (40-136); CREATININE SERUM 0.97 MG/DL (0.60-1.30); GFR ESTIMATED > 60
[2020-11-22 10:42] LABS: BUN/CREATININE RATIO 6
[2020-11-22 10:44] LABS: ALANINE AMINOTRANSFERASE 19 U/L (0-55)
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
[2020-11-22] MEDS ORDERED: KETOROLAC 30 MG/ML VIAL IVP ONE (11:00)
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
[2020-11-22] MEDS ORDERED: TETANUS,DIPTH,PERTUSS P/F (BOOSTRIX) 0.5 ML VIAL IM ONE (12:30)
[2020-11-22] MEDS ORDERED: LIDOCAINE 1% INJ 20 ML 20 ML VIAL INJ ONE (12:30)
[2020-11-22 13:22] VITALS: BP 121/76
== END 2020-11-22 13:22 | disposition home or self-care (01) ==
LOC: EDUNIT# 10:07 → ER 10:09
DX: S01.81XA Laceration without foreign body of other part of head, initial encounter (principal); R10.11 Right upper quadrant pain; Z23 Encounter for immunization; V13.4XXA Pedal cycle driver injured in collision with car, pick-up truck or van in traffic accident, initial encounter
CPT/HCPCS: 36415; 70450; 71045; 72125; 72170; 80053; 85025; 90715

== ENCOUNTER 2020-12-28 16:39 | Emergency (ER) | payer SELFPAY ==
[~2020-12-28] VITALS: Ht 172 cm; Wt 63.5 kg
[2020-12-28] MEDS ORDERED: KETOROLAC 30 MG/ML VIAL IVP STA (16:42)
[2020-12-28 16:48] LABS: BASOPHILS % (AUTO) 0 % (0-10); EOSINOPHILS # (AUTO) 0.1 10^3/uL (0.0-0.3); EOSINOPHILS % (AUTO) 1 % (0-10); HEMATOCRIT 49 % (40-54); HEMOGLOBIN 17.1 g/dL (13.3-17.7); LYMPHOCYTES # (AUTO) 1.9 10^3/uL (1.0-4.0); LYMPHOCYTES % (AUTO) 25 % (12-44); MEAN CORPUSCULAR HEMOGLOBIN 35 pg (25-34); MEAN CORPUSCULAR HGB CONC 35 g/dL (32-36); MEAN CORPUSCULAR VOLUME 100 fL (80-99); MEAN PLATELET VOLUME 9.7 fL (9.0-12.2); MONOCYTES # (AUTO) 0.7 10^3/uL (0.0-1.0); MONOCYTES % (AUTO) 9 % (0-12); NEUTROPHILS # (AUTO) 5.1 10^3/uL (1.8-7.8); NEUTROPHILS % (AUTO) 64 % (42-75); PLATELET COUNT 227 10^3/uL (130-400); WHITE BLOOD COUNT 7.8 10^3/uL (4.3-11.0)
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
[2020-12-28 17:09] LABS: ALBUMIN 3.7 GM/DL (3.2-4.5); POTASSIUM 3.6 MMOL/L (3.6-5.0)
[2020-12-28 17:10] LABS: CALCIUM 8.7 MG/DL (8.5-10.1)
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
[2020-12-28 17:11] LABS: TOTAL PROTEIN 6.4 GM/DL (6.4-8.2)
[2020-12-28 17:13] LABS: BILIRUBIN,TOTAL 0.2 MG/DL (0.1-1.0)
[2020-12-28 17:15] LABS: CREATININE SERUM 0.87 MG/DL (0.60-1.30)
[2020-12-28] MEDS ORDERED: LACTATED RINGERS 1,000 ML IV ONE (17:30)
[2020-12-28] MEDS ORDERED: ACETAMINOPHEN 500 MG TAB (TYLENOL) PO STA (17:34)
[2020-12-28 18:37] VITALS: BP 115/89
== END 2020-12-28 18:37 | disposition home or self-care (01) ==
LOC: EDUNIT# 16:39 → ER 16:40
DX: F10.129 Alcohol abuse with intoxication, unspecified (principal); M79.645 Pain in left finger(s); M79.644 Pain in right finger(s); M54.2 Cervicalgia; F17.210 Nicotine dependence, cigarettes, uncomplicated
CPT/HCPCS: 70450; 72125; 80053; 85025; 99283; G0480; 36415; 80320

== ENCOUNTER 2021-01-02 15:38 | Emergency (ER) | payer SELFPAY ==
[~2021-01-02] VITALS: Ht 172.7 cm; Wt 61.2 kg
[2021-01-02 15:38] VITALS: BP 114/77
[2021-01-02] MEDS ORDERED: ASPIRIN 81 MG CHEW (CHILDREN'S ASA) PO ONE (16:00)
[2021-01-02] MEDS ORDERED: ANTACID SUSP 30 ML UDC (MYLANTA) PO ONE (16:00)
[2021-01-02] MEDS ORDERED: LIDOCAINE 2% VISCOUS 15 ML UDC PO ONE (16:00)
[2021-01-02 16:03] LABS: BASOPHILS % (AUTO) 1 % (0-10); EOSINOPHILS # (AUTO) 0.1 10^3/uL (0.0-0.3); EOSINOPHILS % (AUTO) 1 % (0-10); HEMATOCRIT 52 % (40-54); LYMPHOCYTES # (AUTO) 1.1 10^3/uL (1.0-4.0); LYMPHOCYTES % (AUTO) 16 % (12-44); MEAN CORPUSCULAR HEMOGLOBIN 34 pg (25-34); MEAN CORPUSCULAR HGB CONC 34 g/dL (32-36); MEAN CORPUSCULAR VOLUME 100 fL (80-99); MEAN PLATELET VOLUME 11.1 fL (9.0-12.2); MONOCYTES # (AUTO) 0.7 10^3/uL (0.0-1.0); MONOCYTES % (AUTO) 11 % (0-12); NEUTROPHILS % (AUTO) 72 % (42-75); PLATELET COUNT 193 10^3/uL (130-400); WHITE BLOOD COUNT 6.9 10^3/uL (4.3-11.0)
--- NOTE | 2021-01-02 16:08 | ED General ---
General Chief Complaint: Dizziness/Syncope Stated Complaint: SYNCOPE/SOB Nursing Triage Note: PT BROUGHT IN BY [facility] FOR DIZZINESS AND SOA. PT STATES HE HAS NOT EATEN IN 6 DAYS. Source of Information: Patient Exam Limitations: No Limitations History of Present Illness Date Seen by Provider: Jan 02, 2021 Time Seen by Provider: 16:07 Initial Comments To ER with reports of dizziness and shortness of breath. Has not eaten in 6 days allegedly though he did have a couple of beers today. Timing/Duration: 1-2 Days Severity: Moderate Associated Systoms: Denies Symptoms Allergies and Home Medications Allergies Coded Allergies: codeine (Verified Allergy, Unknown, 04/11/20) Uncoded Allergies: IV CONTRAST (Allergy, Unknown, 07/21/19) Patient Home Medication List Home Medication List Reviewed: Yes Review of Systems Review of Systems Constitutional: see HPI EENTM: see HPI Respiratory: no symptoms reported Cardiovascular: no symptoms reported Genitourinary: no symptoms reported Musculoskeletal: no symptoms reported Skin: no symptoms reported Psychiatric/Neurological: No Symptoms Reported Hematologic/Lymphatic: No Symptoms Reported Immunological/Allergic: no symptoms reported Past Sitxafe-Zxkofw-Qemkwj Hx Immunizations Up To Date Tetanus Booster (TDap): Unknown Seasonal Allergies Seasonal Allergies: No Past Medical History Surgeries: Yes Orthopedic Respiratory: No Cardiac: No Neurological: No Genitourinary: No Gastrointestinal: No Musculoskeletal: No Endocrine: No HEENT: No Cancer: No Psychosocial: No Integumentary: No Blood Disorders: No Family Medical History No Pertinent Family Hx Physical Exam Vital Signs Vital Signs - First Documented 01/02/21 15:38 Pulse 98 Resp 22 B/P (MAP) 114/77 (89) Pulse Ox 96 O2 Delivery Room Air Capillary Refill : Less Than 3 Seconds Height, Weight, BMI Height: '" Weight: lbs. oz. kg; 20.00 BMI Method: General Appearance: No Apparent Distress, WD/WN Eyes: Bilateral Eye Normal Inspection, Bilateral Eye PERRL, Bilateral Eye EOMI HEENT: PERRL/EOMI, TMs Normal Neck: Full Range of Motion, Normal Inspection Respiratory: Normal Breath Sounds, No Accessory Muscle Use, No Respiratory Distress Cardiovascular: Regular Rate, Rhythm, Normal Peripheral Pulses Gastrointestinal: Normal Bowel Sounds, Non Tender, Soft Extremity: Normal Capillary Refill, Normal Inspection Neurologic/Psychiatric: Alert, Oriented x3 Skin: Normal Color, Warm/Dry Procedures/Interventions Suture Size: 4-0 F5-2 Progress/Results/Core Measures Suspected Sepsis SIRS Temperature: Pulse: 98 Respiratory Rate: 22 Laboratory Tests 01/02/21 15:50: White Blood Count 6.9 Blood Pressure 114 /77 Mean: 89 Laboratory Tests 01/02/21 15:50: Creatinine 0.76, INR Comment 0.9, Platelet Count 193, Total Bilirubin 0.6 Results/Orders Lab Results Laboratory Tests Test 01/02/21 15:50 Range/Units White Blood Count 6.9 4.3-11.0 10^3/uL Red Blood Count 5.25 4.30-5.52 10^6/uL Hemoglobin 18.0 H 13.3-17.7 g/dL Hematocrit 52 40-54 % Mean Corpuscular Volume 100 H 80-99 fL Mean Corpuscular Hemoglobin 34 25-34 pg Mean Corpuscular Hemoglobin Concent 34 32-36 g/dL Red Cell Distribution Width 13.7 10.0-14.5 % Platelet Count 193 130-400 10^3/uL Mean Platelet Volume 11.1 9.0-12.2 fL Immature Granulocyte % (Auto) 1 % Neutrophils (%) (Auto) 72 42-75 % Lymphocytes (%) (Auto) 16 12-44 % Monocytes (%) (Auto) 11 0-12 % Eosinophils (%) (Auto) 1 0-10 % Basophils (%) (Auto) 1 0-10 % Neutrophils # (Auto) 5.0 1.8-7.8 10^3/uL Lymphocytes # (Auto) 1.1 1.0-4.0 10^3/uL Monocytes # (Auto) 0.7 0.0-1.0 10^3/uL Eosinophils # (Auto) 0.1 0.0-0.3 10^3/uL Basophils # (Auto) 0.0 0.0-0.1 10^3/uL Immature Granulocyte # (Auto) 0.0 0.0-0.1 10^3/uL Prothrombin Time 12.6 12.2-14.7 SEC INR Comment 0.9 0.8-1.4 Sodium Level 135 135-145 MMOL/L Potassium Level 4.5 3.6-5.0 MMOL/L Chloride Level 102 98-107 MMOL/L Carbon Dioxide Level 17 L 21-32 MMOL/L Anion Gap 16 H 5-14 MMOL/L Blood Urea Nitrogen 4 L 7-18 MG/DL Creatinine 0.76 0.60-1.30 MG/DL Estimat Glomerular Filtration Rate 109 BUN/Creatinine Ratio 5 Glucose Level 98 70-105 MG/DL Calcium Level 9.0 8.5-10.1 MG/DL Corrected Calcium 9.1 8.5-10.1 MG/DL Magnesium Level 2.2 1.6-2.4 MG/DL Total Bilirubin 0.6 0.1-1.0 MG/DL Aspartate Amino Transf (AST/SGOT) 35 H 5-34 U/L Alanine Aminotransferase (ALT/SGPT) 24 0-55 U/L Alkaline Phosphatase 84 40-136 U/L Troponin I < 0.028 <0.028 NG/ML B-Type Natriuretic Peptide < 10.0 <100.0 PG/ML Total Protein 6.7 6.4-8.2 GM/DL Albumin 3.9 3.2-4.5 GM/DL Serum Alcohol 262 H <10 MG/DL My Orders Orders - CORA LAY SALES AUDIT CLERK Cbc With Automated Diff (01/02/21 15:41) Comprehensive Metabolic Panel (01/02/21 15:41) Ekg Tracing (01/02/21 15:41) Magnesium (01/02/21 15:41) Ed Iv/Invasive Line Start (01/02/21 15:41) Chest 1 View, Ap/Pa Only (01/02/21 15:41) BNP (01/02/21 15:41) Alcohol (01/02/21 15:41) Protime With Inr (01/02/21 15:41) Covid 19 Inhouse Test (01/02/21 15:41) Aspirin Chewable Tablet (Baby Aspirin Ch (01/02/21 16:00) Troponin I (01/02/21 15:57) Antacid Suspension (Mylanta Suspension (01/02/21 16:00) Lidocaine 2% Viscous 15 Ml (Xylocaine Vi (01/02/21 16:00) Medications Given in ED Current Medications Medications Dose Ordered Sig/Reginald Route Start Time Stop Time Status Last Admin Dose Admin Al Hydrox/Mg Hydrox/Simethicone 30 ml ONCE ONCE PO 01/02/21 16:00 01/02/21 16:01 DC 01/02/21 16:10 30 ML Aspirin 324 mg ONCE ONCE PO 01/02/21 16:00 01/02/21 16:01 DC 01/02/21 16:10 324 MG Lidocaine HCl 15 ml ONCE ONCE PO 01/02/21 16:00 01/02/21 16:01 DC 01/02/21 16:10 15 ML Vital Signs/I&O 01/02/21 15:38 Pulse 98 Resp 22 B/P (MAP) 114/77 (89) Pulse Ox 96 O2 Delivery Room Air Capillary Refill : Less Than 3 Seconds Blood Pressure Mean: 89 Departure Impression Primary Impression: Alcohol dependence Disposition: HOME, SELF-CARE Condition: Stable Departure-Patient Inst. Decision time for Depature: 16:29 Referrals: NO,LOCAL PHYSICIAN (PCP/Family) Primary Care Physician Patient Instructions: Syncope (Fainting) (DC) Add. Discharge Instructions: All discharge instructions reviewed with patient and/or family. Voiced understanding. CORA LAY APRN Jan 02, 2021 16:07
[2021-01-02 16:13] LABS: INR 0.9 (0.8-1.4); PROTHROMBIN TIME PATIENT 12.6 SEC (12.2-14.7)
[2021-01-02 16:15] LABS: ALBUMIN 3.9 GM/DL (3.2-4.5); CHLORIDE 102 MMOL/L (98-107); SODIUM 135 MMOL/L (135-145)
[2021-01-02 16:17] LABS: GLUCOSE 98 MG/DL (70-105); TOTAL PROTEIN 6.7 GM/DL (6.4-8.2)
[2021-01-02 16:18] LABS: CARBON DIOXIDE 17 MMOL/L (21-32)
[2021-01-02 16:19] LABS: BILIRUBIN,TOTAL 0.6 MG/DL (0.1-1.0)
[2021-01-02 16:21] LABS: ALKALINE PHOSPHATASE 84 U/L (40-136); CREATININE SERUM 0.76 MG/DL (0.60-1.30); GFR ESTIMATED 109
[2021-01-02 16:22] LABS: BUN/CREATININE RATIO 5
[2021-01-02 16:24] LABS: ALANINE AMINOTRANSFERASE 24 U/L (0-55); MAGNESIUM 2.2 MG/DL (1.6-2.4); POTASSIUM 4.5 MMOL/L (3.6-5.0)
--- NOTE | 2021-01-02 17:39 | Diagnostic Imaging Report ---
INDICATION: syncope. TECHNIQUE: Single view chest 5:21 PM. CORRELATION STUDY: 11/22/2020 FINDINGS: The heart size, mediastinal configuration and pulmonary vascularity are within normal limits. The lungs are clear with no consolidating infiltrate. There is no significant effusion or pneumothorax. IMPRESSION: 1. Negative for acute abnormality of the chest. Dictated by: Dictated on workstation # [id number]
== END 2021-01-02 17:28 | disposition home or self-care (01) ==
LOC: EDUNIT# 15:38 → ER 15:40
DX: F10.10 Alcohol abuse, uncomplicated (principal); Y90.8 Blood alcohol level of 240 mg/100 ml or more; Z20.822 Contact with and (suspected) exposure to COVID-19
CPT/HCPCS: 71045; 80053; 83735; 83880; 84484; 85025; 85610; 87636; 99284; G0480; 36415; 80320

== ENCOUNTER 2021-02-21 15:01 | Emergency (ER) | payer SELFPAY ==
[~2021-02-21] VITALS: Ht 172.7 cm; Wt 65.7 kg
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
[2021-02-21 15:22] LABS: BASOPHILS % (AUTO) 0 % (0-10); EOSINOPHILS # (AUTO) 0.1 10^3/uL (0.0-0.3); EOSINOPHILS % (AUTO) 1 % (0-10); HEMATOCRIT 52 % (40-54); HEMOGLOBIN 17.5 g/dL (13.3-17.7); LYMPHOCYTES # (AUTO) 1.9 X 10^3 (1.0-4.0); LYMPHOCYTES % (AUTO) 20 % (12-44); MEAN CORPUSCULAR HEMOGLOBIN 33 pg (25-34); MEAN CORPUSCULAR HGB CONC 34 g/dL (32-36); MEAN CORPUSCULAR VOLUME 98 fL (80-99); MEAN PLATELET VOLUME 9.8 fL (9.0-12.2); MONOCYTES # (AUTO) 0.6 X 10^3 (0.0-1.0); MONOCYTES % (AUTO) 7 % (0-12); NEUTROPHILS # (AUTO) 6.9 X 10^3 (1.8-7.8); NEUTROPHILS % (AUTO) 72 % (42-75); PLATELET COUNT 227 10^3/uL (130-400); WHITE BLOOD COUNT 9.5 10^3/uL (4.3-11.0)
[2021-02-21 15:32] LABS: ALBUMIN 4.3 GM/DL (3.2-4.5); POTASSIUM 4.9 MMOL/L (3.6-5.0)
[2021-02-21 15:34] LABS: CALCIUM 9.2 MG/DL (8.5-10.1)
[2021-02-21 15:35] LABS: TOTAL PROTEIN 7.3 GM/DL (6.4-8.2)
[2021-02-21 15:36] LABS: INR 0.9 (0.8-1.4); PROTHROMBIN TIME PATIENT 12.5 SEC (12.2-14.7)
[2021-02-21 15:37] LABS: BILIRUBIN,TOTAL 0.3 MG/DL (0.1-1.0)
[2021-02-21 15:39] LABS: CREATININE SERUM 0.78 MG/DL (0.60-1.30)
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
[2021-02-21] MEDS ORDERED: OXYM15MI4 NS (15:59)
[2021-02-21] MEDS ORDERED: AMOX500C2 PO (15:59)
[2021-02-21 16:07] VITALS: BP 117/98
== END 2021-02-21 16:07 | disposition home or self-care (01) ==
LOC: EDUNIT# 15:01 → ER 15:02
DX: S02.2XXA Fracture of nasal bones, initial encounter for closed fracture (principal); F10.20 Alcohol dependence, uncomplicated; Y04.8XXA Assault by other bodily force, initial encounter
CPT/HCPCS: 70450; 71250; 72125; 74176; 80053; 85025; 85610; 99284; G0480; 36415; 80320

== ENCOUNTER 2021-02-23 16:16 | Emergency (ER) | payer SELFPAY ==
[~2021-02-23] VITALS: Ht 165 cm; Wt 61.0 kg
[~2021-02-23 16:16] MED LIST: AMOX500C2 PO; OXYM15MI4 NS
[2021-02-23 16:18] VITALS: BP 142/104
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
== END 2021-02-23 16:43 | disposition home or self-care (01) ==
LOC: EDUNIT# 16:16 → ER 16:17
DX: S05.12XA Contusion of eyeball and orbital tissues, left eye, initial encounter (principal); F10.20 Alcohol dependence, uncomplicated; F17.210 Nicotine dependence, cigarettes, uncomplicated; X58.XXXA Exposure to other specified factors, initial encounter
CPT/HCPCS: 99283

== ENCOUNTER 2021-03-03 19:04 | Emergency (ER) | payer SELFPAY ==
[~2021-03-03] VITALS: Ht 172.7 cm; Wt 55.0 kg
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
[2021-03-03 20:24] VITALS: BP 141/107
== END 2021-03-03 20:20 | disposition home or self-care (01) ==
LOC: EDUNIT# 19:04 → ER 19:06
DX: F10.20 Alcohol dependence, uncomplicated (principal)
CPT/HCPCS: 70450

== ENCOUNTER 2021-05-14 03:36 | Emergency (ER) | payer SELFPAY ==
[~2021-05-14] VITALS: Ht 173 cm; Wt 61.0 kg
[2021-05-14] MEDS ORDERED: FAMOTIDINE 20MG/2ML IV (PEPCID) IV STA (03:48)
[2021-05-14] MEDS ORDERED: LACTATED RINGERS 1,000 ML IV STA (03:48)
--- NOTE | 2021-05-14 03:56 | ED Chest Pain ---
General Chief Complaint: Chest Pain Stated Complaint: CP Source: patient Exam Limitations: no limitations History of Present Illness Date Seen by Provider: May 14, 2021 Time Seen by Provider: 03:37 Initial Comments Patient to ER via EMS from home with chief complaint that he has been having some chest pain on the left side reproducible to palpation for the past 3 to 4 days. No history of heart disease hypertension hyperlipidemia. He smokes about a pack of cigarettes a day denies recreational drugs. He says he drinks about a case a day. He drinks beer all the time he says. No family history of coronary disease. No diabetes. No history of blood clots or shortness of air, hemoptysis or signs of DVT. Patient does not take anything for his pain. EMS did a forward lead which was unremarkable. No aspirin or nitro on route. Allergies and Home Medications Allergies Coded Allergies: codeine (Verified Allergy, Unknown, 04/11/20) Uncoded Allergies: IV CONTRAST (Allergy, Unknown, 07/21/19) Patient Home Medication List Home Medication List Reviewed: Yes Amoxicillin (Amoxicillin) 500 Mg Capsule, 500 MG PO TID Prescribed by: CORA LAY on 02/21/211558 Hydrocodone/Acetaminophen (Hydrocodone-Acetamin 5-325 mg) 1 Each Tablet, 1 TAB PO Q6H PRN for PAIN-MODERATE (5-7) Prescribed by: BLANQUITA COSTA on 05/14/21 0500 Omeprazole (Omeprazole) 40 Mg Capsule.dr, 40 MG PO DAILY Prescribed by: BLANQUITA COSTA on 05/14/21 0500 Ondansetron (Ondansetron Odt) 4 Mg Tab.rapdis, 4 MG PO Q6H PRN for NAUSEA/VOMIT ING Prescribed by: BLANQUITA COSTA on 05/14/21 0500 Oxymetazoline HCl (Afrin) 15 Ml Mist, 1 SPRAY NS BID Prescribed by: CORA LAY on 02/21/21 1449 Review of Systems Review of Systems Constitutional: No chills, No diaphoresis EENTM: No Blurred Vision, No Double Vision Respiratory: Denies Cough, Denies Shortness of Air Cardiovascular: See HPI, Chest Pain; Denies Edema, Denies Lightheadedness Gastrointestinal: Denies Constipated, Denies Diarrhea, Denies Nausea Genitourinary: Denies Burning, Denies Discharge, Denies Drainage Musculoskeletal: No back pain, No joint pain Skin: No pruritus, No rash Psychiatric/Neurological: Denies Headache, Denies Numbness All Other Systems Reviewed Negative Unless Noted: Yes Past Ngkcfiv-Egatnv-Omiojs Hx Patient Social History Tobacco Use?: Yes Tobacco type used: Cigarettes Smoking Status: Current Everyday Smoker Use of E-Cig and/or Vaping dev: No Substance use?: No Alcohol Use?: Yes Alcohol type: Beer Immunizations Up To Date Tetanus Booster (TDap): Unknown Seasonal Allergies Seasonal Allergies: No Past Medical History Surgeries: Yes Orthopedic Respiratory: No Cardiac: No Neurological: No Genitourinary: No Gastrointestinal: No Musculoskeletal: No Endocrine: No HEENT: No Cancer: No Psychosocial: No Integumentary: No Blood Disorders: No Family Medical History No Pertinent Family Hx Physical Exam Vital Signs Vital Signs - First Documented 05/14/21 03:40 Temp 36.4 Pulse 74 Resp 15 B/P (MAP) 135/97 (110) Pulse Ox 94 O2 Delivery Room Air Capillary Refill : Height, Weight, BMI Height: '" Weight: lbs. oz. kg; 18.00 BMI Method: General Appearance: No Apparent Distress, Other (Disheveled but clean) HEENT: PERRL/EOMI, Pharynx Normal, Moist Mucous Membranes Neck: Full Range of Motion, Normal Inspection Respiratory: No Chest Non Tender (Left chest tender to palpation); Lungs Clear, Normal Breath Sounds, No Accessory Muscle Use, No Respiratory Distress Cardiovascular: Regular Rate, Rhythm, No Edema, Normal Peripheral Pulses Gastrointestinal: Normal Bowel Sounds, Non Tender, Soft Extremity: Normal Capillary Refill, Normal Inspection, No Pedal Edema Neurologic/Psychiatric: Alert, Oriented x3, No Motor/Sensory Deficits, Normal Mood/Affect Skin: Normal Color, Warm/Dry Procedures/Interventions Suture Size: 4-0 F5-2 Progress/Results/Core Measures Results/Orders Lab Results Laboratory Tests Test 05/14/21 04:00 05/14/21 05:50 Range/Units White Blood Count 6.2 4.3-11.0 10^3/uL Red Blood Count 4.91 4.30-5.52 10^6/uL Hemoglobin 16.3 13.3-17.7 g/dL Hematocrit 47 40-54 % Mean Corpuscular Volume 96 80-99 fL Mean Corpuscular Hemoglobin 33 25-34 pg Mean Corpuscular Hemoglobin Concent 35 32-36 g/dL Red Cell Distribution Width 13.7 10.0-14.5 % Platelet Count 187 130-400 10^3/uL Mean Platelet Volume 9.1 9.0-12.2 fL Immature Granulocyte % (Auto) 0 % Neutrophils (%) (Auto) 61 42-75 % Lymphocytes (%) (Auto) 25 12-44 % Monocytes (%) (Auto) 12 0-12 % Eosinophils (%) (Auto) 2 0-10 % Basophils (%) (Auto) 1 0-10 % Neutrophils # (Auto) 3.8 1.8-7.8 10^3/uL Lymphocytes # (Auto) 1.6 1.0-4.0 10^3/uL Monocytes # (Auto) 0.7 0.0-1.0 10^3/uL Eosinophils # (Auto) 0.1 0.0-0.3 10^3/uL Basophils # (Auto) 0.0 0.0-0.1 10^3/uL Immature Granulocyte # (Auto) 0.0 0.0-0.1 10^3/uL Prothrombin Time 13.1 12.2-14.7 SEC INR Comment 1.0 0.8-1.4 Activated Partial Thromboplast Time 29 24-35 SEC D-Dimer 0.49 0.00-0.49 UG/ML Sodium Level 143 135-145 MMOL/L Potassium Level 3.9 3.6-5.0 MMOL/L Chloride Level 102 98-107 MMOL/L Carbon Dioxide Level 25 21-32 MMOL/L Anion Gap 16 H 5-14 MMOL/L Blood Urea Nitrogen 8 7-18 MG/DL Creatinine 0.81 0.60-1.30 MG/DL Estimat Glomerular Filtration Rate 101 BUN/Creatinine Ratio 10 Glucose Level 110 H 70-105 MG/DL Calcium Level 8.7 8.5-10.1 MG/DL Corrected Calcium 8.6 8.5-10.1 MG/DL Magnesium Level 2.2 1.6-2.4 MG/DL Total Bilirubin 0.3 0.1-1.0 MG/DL Aspartate Amino Transf (AST/SGOT) 48 H 5-34 U/L Alanine Aminotransferase (ALT/SGPT) 33 0-55 U/L Alkaline Phosphatase 102 40-136 U/L Myoglobin 41.6 10.0-92.0 NG/ML Troponin I < 0.028 < 0.028 <0.028 NG/ML B-Type Natriuretic Peptide < 10.0 <100.0 PG/ML Total Protein 7.2 6.4-8.2 GM/DL Albumin 4.1 3.2-4.5 GM/DL Lipase 143 H 8-78 U/L Serum Alcohol 389 *H <10 MG/DL My Orders Orders - JULISSA,BLANQUITA J Chest 1 View, Ap/Pa Only (05/14/21 ) Cbc With Automated Diff (05/14/21 03:48) Magnesium (05/14/21 03:48) Ekg Tracing (05/14/21 03:48) Comprehensive Metabolic Panel (05/14/21 03:48) Myoglobin Serum (05/14/21 03:48) Protime With Inr (05/14/21 03:48) Partial Thromboplastin Time (05/14/21 03:48) O2 (05/14/21 03:48) Monitor-Rhythm Ecg Trace Only (05/14/21 03:48) Ed Iv/Invasive Line Start (05/14/21 03:48) Lipase (05/14/21 03:48) Bnp David (05/14/21 03:48) Aspirin Chewable Tablet (Baby Aspirin Ch (05/14/21 04:00) Lidocaine 2% Viscous 15 Ml (Xylocaine Vi (05/14/21 04:00) Antacid Suspension (Mylanta Suspension (05/14/21 04:00) Lactated Ringers (Lr 1000 Ml Iv Solution (05/14/21 03:48) Famotidine Injection (Pepcid Injection) (05/14/21 03:48) Ed Iv/Invasive Line Start (05/14/21 03:48) Fibrin Degradation Products (05/14/21 03:48) Alcohol (05/14/21 03:48) Troponin I Hendry (05/14/21 03:48) Pantoprazole Injection (Protonix Injecti (05/14/21 04:45) Troponin I David (05/14/21 06:00) Medications Given in ED Current Medications Medications Dose Ordered Sig/Reginald Route Start Time Stop Time Status Last Admin Dose Admin Al Hydrox/Mg Hydrox/Simethicone 30 ml ONCE ONCE PO 05/14/21 04:00 05/14/21 04:01 DC 05/14/21 04:02 30 ML Aspirin 324 mg ONCE ONCE PO 05/14/21 04:00 05/14/21 04:01 DC 05/14/21 04:01 324 MG Lidocaine HCl 15 ml ONCE ONCE PO 05/14/21 04:00 05/14/21 04:01 DC 05/14/21 04:02 15 ML Pantoprazole 40 mg ONCE ONCE IV 05/14/21 04:45 05/14/21 04:46 DC 05/14/21 04:57 40 MG Vital Signs/I&O 05/14/21 03:40 Temp 36.4 Pulse 74 Resp 15 B/P (MAP) 135/97 (110) Pulse Ox 94 O2 Delivery Room Air Progress Progress Note #1: Time: 03:54 Progress Note Brionna 24 mg aspirin and will trial a GI cocktail. Lipase and labs. EKG. He does not have a lot of risk factors for heart disease other than smoking and his chest pain is exquisitely reproducible to light palpation of his left chest. Costochondritis is more likely Progress Note #2: Time: 04:54 Progress Note Patient is having some chest wall pain and mild pancreatitis related likely to his alcohol use. His pain is under control. He is having no nausea. We will give him some IV fluids and let him go home with general counseling for management of pancreatitis outpatient. Giving him pantoprazole. We will give him another couple hours to sober up. We will repeat a troponin at 0600 for his 3 days of chest pain. We did discuss alcohol abstinence and alcohol treatment plans. Patient states he would like the medication sent to [facility] and drifted back off to sleep. Progress Note #3: Time: 07:00 Progress Note Patient's delta troponin is negative. He is up walking talking speaking in full sentences without slurring of speech and is oriented to person place and time. We will allow him to go home and treat his pancreatitis outpatient. Initial ECG Impression Date: May 14, 2021 Initial ECG Impression Time: 03:38 Initial ECG Rate: 77 Initial ECG Rhythm: Normal Sinus Initial ECG Intervals: Normal Initial ECG Impression: Normal, Nonspecific Changes Comment Sinus rhythm without clinically relevant ST elevation or depression. Diagnostic Imaging Diagonstic Imaging: Xray Plain Films/CT/US/NM/MRI: chest Comments [facility] [place], [place] NAME: TRISHA CHAUDHRY [facility] REC#: [id number] PT STATUS: REG ER : 1970 PHYSICIAN: BLANQUITA COSTA MD ADMIT DATE: 05/14/21/ER Draft Date of Exam:05/14/21 CHEST 1 VIEW, AP/PA ONLY INDICATION: CHEST PAIN COMPARISON: 01/02/2021 FINDINGS: Single frontal view of the chest demonstrates normal heart size and pulmonary vascularity. The lungs are well aerated and clear. No large pleural effusion or pneumothorax is seen. The visualized osseous structures show no acute abnormalities. IMPRESSION: 1. No acute cardiopulmonary process. Dictated on workstation # [id number] Dict: 05/14/21 0403 Trans: 05/14/21 0411 ILIR [id number] Interpreted by: LAUREN BERRIOS MD Electronically signed by: Reviewed: Reviewed by Me Departure Impression Primary Impression: Chest wall pain Additional Impression: Pancreatitis, alcoholic, acute Qualified Codes: K85.20 - Alcohol induced acute pancreatitis without necrosis or infection Disposition: 01 HOME, SELF-CARE Condition: Stable Departure-Patient Inst. Decision time for Depature: 07:00 Referrals: NO,LOCAL PHYSICIAN (PCP/Family) Primary Care Physician Patient Instructions: Chest Pain That Is Not Caused by the Heart (DC), Pancreatitis (DC) Add. Discharge Instructions: Stick to a liquid diet for the next couple days. Decrease your use of alcohol with the goal of eventually completely stopping drinking alcohol. There is no safe level of alcohol you can drink that will not cause pancreatitis to get worse and cause significant pain and nausea. Ondansetron 1 tablet every 6 hours necessary for nausea or vomiting. Omeprazole 40 mg daily for the next 2 weeks to reduce stomach acid and pain. Schedule an appointment with a primary care doctor to help manage your symptoms. Return to the ER for significantly worsening symptoms. All discharge instructions reviewed with patient and/or family. Voiced understanding. Scripts Omeprazole (Omeprazole) 40 Mg Capsule.dr 40 MG PO DAILY for 30 Days, #30 CAP 0 Refills Prov: BLANQUITA COSTA 05/14/21 Hydrocodone/Acetaminophen (Hydrocodone-Acetamin 5-325 mg) 1 Each Tablet 1 TAB PO Q6H PRN for PAIN-MODERATE (5-7), #8 TAB 0 Refills Prov: BLANQUITA COSTA 05/14/21 Ondansetron (Ondansetron Odt) 4 Mg Tab.rapdis 4 MG PO Q6H PRN for NAUSEA/VOMITING, #15 TAB 0 Refills Prov: BLANQUITA COSTA 05/14/21 BLANQUITA COSTA May 14, 2021 03:56
[2021-05-14] MEDS ORDERED: ASPIRIN 81 MG CHEW (CHILDREN'S ASA) PO ONE (04:00)
[2021-05-14] MEDS ORDERED: LIDOCAINE 2% VISCOUS 15 ML UDC PO ONE (04:00)
[2021-05-14] MEDS ORDERED: ANTACID SUSP 30 ML UDC (MYLANTA) PO ONE (04:00)
--- NOTE | 2021-05-14 04:13 | Diagnostic Imaging Report ---
INDICATION: CHEST PAIN COMPARISON: 01/02/2021 FINDINGS: Single frontal view of the chest demonstrates normal heart size and pulmonary vascularity. The lungs are well aerated and clear. No large pleural effusion or pneumothorax is seen. The visualized osseous structures show no acute abnormalities. IMPRESSION: 1. No acute cardiopulmonary process. Dictated by: Dictated on workstation # [id number]
[2021-05-14 04:16] LABS: BASOPHILS % (AUTO) 1 % (0-10); EOSINOPHILS # (AUTO) 0.1 10^3/uL (0.0-0.3); EOSINOPHILS % (AUTO) 2 % (0-10); HEMATOCRIT 47 % (40-54); HEMOGLOBIN 16.3 g/dL (13.3-17.7); LYMPHOCYTES # (AUTO) 1.6 10^3/uL (1.0-4.0); LYMPHOCYTES % (AUTO) 25 % (12-44); MEAN CORPUSCULAR HEMOGLOBIN 33 pg (25-34); MEAN CORPUSCULAR HGB CONC 35 g/dL (32-36); MEAN CORPUSCULAR VOLUME 96 fL (80-99); MEAN PLATELET VOLUME 9.1 fL (9.0-12.2); MONOCYTES # (AUTO) 0.7 10^3/uL (0.0-1.0); MONOCYTES % (AUTO) 12 % (0-12); NEUTROPHILS # (AUTO) 3.8 10^3/uL (1.8-7.8); NEUTROPHILS % (AUTO) 61 % (42-75); PLATELET COUNT 187 10^3/uL (130-400); WHITE BLOOD COUNT 6.2 10^3/uL (4.3-11.0)
[2021-05-14 04:26] LABS: ALBUMIN 4.1 GM/DL (3.2-4.5)
[2021-05-14 04:27] LABS: CHLORIDE 102 MMOL/L (98-107); POTASSIUM 3.9 MMOL/L (3.6-5.0); SODIUM 143 MMOL/L (135-145)
[2021-05-14 04:28] LABS: CALCIUM 8.7 MG/DL (8.5-10.1)
[2021-05-14 04:29] LABS: FIBRIN DEGRADATION PRODUCTS 0.49 UG/ML (0.00-0.49); GLUCOSE 110 MG/DL (70-105); PROTHROMBIN TIME PATIENT 13.1 SEC (12.2-14.7); TOTAL PROTEIN 7.2 GM/DL (6.4-8.2)
[2021-05-14 04:30] LABS: CARBON DIOXIDE 25 MMOL/L (21-32)
[2021-05-14 04:31] LABS: BILIRUBIN,TOTAL 0.3 MG/DL (0.1-1.0)
[2021-05-14 04:32] LABS: ALKALINE PHOSPHATASE 102 U/L (40-136)
[2021-05-14 04:33] LABS: CREATININE SERUM 0.81 MG/DL (0.60-1.30); GFR ESTIMATED 101
[2021-05-14 04:34] LABS: BUN/CREATININE RATIO 10
[2021-05-14 04:35] LABS: MAGNESIUM 2.2 MG/DL (1.6-2.4)
[2021-05-14 04:36] LABS: ALANINE AMINOTRANSFERASE 33 U/L (0-55)
[2021-05-14 04:37] LABS: LIPASE 143 U/L (8-78)
[2021-05-14] MEDS ORDERED: PANTOPRAZOLE 40 MG (PROTONIX) VIAL IV ONE (04:45)
[2021-05-14] MEDS ORDERED: ONDA4TAB11 PO (05:00)
[2021-05-14] MEDS ORDERED: OMEP40CA6 PO (05:00)
[2021-05-14] MEDS ORDERED: ACHD5005 PO (05:00)
[2021-05-14 07:00] VITALS: BP 113/83
== END 2021-05-14 07:10 | disposition home or self-care (01) ==
LOC: EDUNIT# 03:36 → ER 03:38
DX: R07.89 Other chest pain (principal); K85.20 Alcohol induced acute pancreatitis without necrosis or infection; F17.210 Nicotine dependence, cigarettes, uncomplicated
CPT/HCPCS: 71045; 80053; 83690; 83735; 83874; 83880; 84484; 85025; 85379; 85610; 85730; 93005; 93041; 99284; G0480; 36415; 80320

== ENCOUNTER 2021-09-11 18:25 | Emergency (ER) | payer SELFPAY ==
[~2021-09-11] VITALS: Ht 172 cm; Wt 65.3 kg
[~2021-09-11 18:25] MED LIST changes: +ACHD5005 PO; +OMEP40CA6 PO; +ONDA4TAB11 PO
[2021-09-11 20:37] VITALS: BP 143/97
[2021-09-11] MEDS ORDERED: PRD20T PO (20:42)
[2021-09-11] MEDS ORDERED: METH-732 PO (20:42)
--- NOTE | 2021-09-11 20:42 | ED Back Pain ---
General Chief Complaint: Back Problems Stated Complaint: LOWER BACK PAIN Source of Information: Patient Exam Limitations: No Limitations History of Present Illness Date Seen by Provider: September 11, 2021 Time Seen by Provider: 20:39 Initial Comments To ER with c/o midline low back pain that radiates down the right leg. Just got out of detention today where he has been for the past month. Denies any known injury. No fevers or chills, no history of IV drug use, no loss of bowel or bladder control or numbness of genitals. Location: Lumbar Spine, Paraspinous Muscles Timing/Duration: Getting Worse, Intermittent Severity: Moderate Pain/Injury Location: Back Associated Symptoms: lower back pain Allergies and Home Medications Allergies Coded Allergies: codeine (Verified Allergy, Unknown, 04/11/20) Uncoded Allergies: IV CONTRAST (Allergy, Unknown, 07/21/19) Patient Home Medication List Home Medication List Reviewed: Yes Amoxicillin (Amoxicillin) 500 Mg Capsule, 500 MG PO TID Prescribed by: CORA LAY on 02/21/21 9429 Hydrocodone/Acetaminophen (Hydrocodone-Acetamin 5-325 mg) 1 Each Tablet, 1 TAB PO Q6H PRN for PAIN-MODERATE (5-7) Prescribed by: BLANQUITA COSTA on 05/14/21 0500 Omeprazole (Omeprazole) 40 Mg Capsule.dr, 40 MG PO DAILY Prescribed by: BLANQUITA COSTA on 05/14/21 0500 Ondansetron (Ondansetron Odt) 4 Mg Tab.rapdis, 4 MG PO Q6H PRN for NAUSEA/VOMITING Prescribed by: BLANQUITA COSTA on 05/14/21 0500 Oxymetazoline HCl (Afrin) 15 Ml Mist, 1 SPRAY NS BID Prescribed by: CORA LAY on 02/21/21 1559 Review of Systems Constitutional: see HPI EENTM: see HPI Respiratory: no symptoms reported Cardiovascular: no symptoms reported Genitourinary: no symptoms reported Musculoskeletal: see HPI, back pain Skin: no symptoms reported Psychiatric/Neurological: No Symptoms Reported Past Xlosbkc-Ksjkxi-Jlxuxg Hx Immunizations Up To Date Tetanus Booster (TDap): Unknown First/Initial COVID19 Vaccinat: N/A Seasonal Allergies Seasonal Allergies: No Past Medical History Surgeries: Yes Orthopedic Respiratory: No Cardiac: No Neurological: No Genitourinary: No Gastrointestinal: No Musculoskeletal: No Endocrine: No HEENT: No Cancer: No Psychosocial: No Integumentary: No Blood Disorders: No Family Medical History No Pertinent Family Hx Physical Exam Vital Signs Capillary Refill : Height, Weight, BMI Height: '" Weight: lbs. oz. kg; 20.00 BMI Method: General Appearance: No Apparent Distress, WD/WN Respiratory: No Accessory Muscle Use, No Respiratory Distress Gastrointestinal: Normal Bowel Sounds, Non Tender, Soft Extremity: Normal Capillary Refill, Normal Inspection Neurologic/Psychiatric: Alert, Oriented x3 Skin: Normal Color, Warm/Dry Procedures/Interventions Suture Size: 4-0 F5-2 Progress/Results/Core Measures Results/Orders My Orders Orders - CORA LAY APRN Ketorolac Injection (Toradol Injection) (09/11/21 20:45) Orphenadrine Inj (Ed Only) (Norflex Inje (09/11/21 20:45) Departure Impression Primary Impression: Lumbar radiculopathy Disposition: HOME, SELF-CARE Condition: Stable Departure-Patient Inst. Decision time for Depature: 20:41 Referrals: NO,LOCAL PHYSICIAN (PCP/Family) Primary Care Physician Patient Instructions: Radiculopathy (DC) Add. Discharge Instructions: 1. medication as directed. Follow up with your doctor next week All discharge instructions reviewed with patient and/or family. Voiced understanding. Scripts Methocarbamol (Methocarbamol) 750 Mg Tablet 750 MG PO Q6-8HR for Back Pain, #20 TAB Prov: CORA LAY APRN 09/11/21 Prednisone (Prednisone) 20 Mg Tab 40 MG PO DAILY, #6 TAB 0 Refills Prov: CORA LAY APRN 09/11/21 CORA LAY APRN September 11, 2021 20:42
[2021-09-11] MEDS ORDERED: KETOROLAC 60 MG/2 ML VIAL IM ONE (20:45)
[2021-09-11] MEDS ORDERED: ORPHENADRINE 60 MG/2 ML (NORFLEX) AMP (ED ONLY) IM ONE (20:45)
== END 2021-09-11 21:00 | disposition home or self-care (01) ==
LOC: EDUNIT# 18:25 → ER 18:26
DX: M54.16 Radiculopathy, lumbar region (principal)
CPT/HCPCS: 99284

== ENCOUNTER 2021-11-03 12:30 | Emergency (ER) | payer SELFPAY ==
[~2021-11-03 12:30] MED LIST changes: +METH-732 PO; +PRD20T PO
[2021-11-03 12:47] LABS: BASOPHILS % (AUTO) 1 % (0-10); EOSINOPHILS # (AUTO) 0.2 10^3/uL (0.0-0.3); EOSINOPHILS % (AUTO) 3 % (0-10); HEMATOCRIT 50 % (40-54); HEMOGLOBIN 16.8 g/dL (13.3-17.7); LYMPHOCYTES # (AUTO) 1.8 10^3/uL (1.0-4.0); LYMPHOCYTES % (AUTO) 27 % (12-44); MEAN CORPUSCULAR HEMOGLOBIN 32 pg (25-34); MEAN CORPUSCULAR HGB CONC 33 g/dL (32-36); MEAN CORPUSCULAR VOLUME 97 fL (80-99); MEAN PLATELET VOLUME 9.3 fL (9.0-12.2); MONOCYTES # (AUTO) 0.7 10^3/uL (0.0-1.0); MONOCYTES % (AUTO) 11 % (0-12); NEUTROPHILS # (AUTO) 3.8 10^3/uL (1.8-7.8); NEUTROPHILS % (AUTO) 58 % (42-75); PLATELET COUNT 266 10^3/uL (130-400); WHITE BLOOD COUNT 6.5 10^3/uL (4.3-11.0)
[2021-11-03 12:58] LABS: ALBUMIN 4.6 GM/DL (3.2-4.5); CHLORIDE 103 MMOL/L (98-107); POTASSIUM 4.2 MMOL/L (3.6-5.0); SODIUM 141 MMOL/L (135-145)
[2021-11-03 13:00] LABS: GLUCOSE 92 MG/DL (70-105); TOTAL PROTEIN 7.8 GM/DL (6.4-8.2)
[2021-11-03] MEDS ORDERED: fentaNYL INJ 100 MCG/2 ML AMP IVP ONE (13:00)
[2021-11-03] MEDS ORDERED: PANTOPRAZOLE 40 MG (PROTONIX) VIAL IV ONE (13:00)
[2021-11-03 13:01] LABS: CARBON DIOXIDE 26 MMOL/L (21-32)
[2021-11-03 13:02] LABS: BILIRUBIN,TOTAL 0.3 MG/DL (0.1-1.0); INR 0.9 (0.8-1.4); PROTHROMBIN TIME PATIENT 12.1 SEC (12.2-14.7)
[2021-11-03 13:04] LABS: ALKALINE PHOSPHATASE 103 U/L (40-136); GFR ESTIMATED 103
[2021-11-03 13:05] LABS: BUN/CREATININE RATIO 6
--- NOTE | 2021-11-03 13:05 | Diagnostic Imaging Report ---
INDICATION: Chest pain. COMPARISON: 05/14/2021. FINDINGS: Single frontal view of the chest demonstrates normal heart size and pulmonary vascularity. The lungs are well aerated and clear. No large pleural effusion or pneumothorax is seen. The visualized osseous structures show no acute abnormalities. IMPRESSION: 1. No acute cardiopulmonary process. Dictated by: Dictated on workstation # [id number]
[2021-11-03 13:06] LABS: MAGNESIUM 2.1 MG/DL (1.6-2.4)
[2021-11-03 13:07] LABS: ALANINE AMINOTRANSFERASE 19 U/L (0-55)
[2021-11-03 13:08] LABS: LIPASE 99 U/L (8-78)
[2021-11-03 13:31] LABS: AMPHETAMINE SCREEN, URINE NEGATIVE (NEGATIVE); BARBITURATE SCREEN URINE NEGATIVE (NEGATIVE); BENZODIAZEPINES SCREEN URINE NEGATIVE (NEGATIVE); CANNABINOID SCREEN, URINE POSITIVE (NEGATIVE); COCAINE SCREEN URINE NEGATIVE (NEGATIVE); METHADONE STAT NEGATIVE (NEGATIVE); OPIATE SCREEN URINE NEGATIVE (NEGATIVE); OXYCODONE STAT NEGATIVE (NEGATIVE); PROPOXYPHENE STAT NEGATIVE (NEGATIVE); TRICYCLIC ANTIDEPRESSANTS SCRE NEGATIVE (NEGATIVE)
--- NOTE | 2021-11-03 15:36 | Diagnostic Imaging Report ---
PROCEDURE: CT chest, abdomen, and pelvis without contrast. TECHNIQUE: Multiple contiguous axial images were obtained through the chest, abdomen, and pelvis without the use of intravenous contrast. Auto Exposure Controls were utilized during the CT exam to meet ALARA standards for radiation dose reduction. INDICATION: Sharp chest pain. COMPARISON: Comparison is made with prior CT from 02/21/2021. FINDINGS: CT CHEST: No pericardial or pleural fluid is detected. No definite axillary, hilar or mediastinal lymphadenopathy is identified. There are some emphysematous changes in both lungs. No pulmonary infiltrate is seen. No mass or evidence of pneumothorax is detected. Bony structures are nonacute. IMPRESSION: Unremarkable noncontrast CT of the chest apart from mild emphysematous changes. CT ABDOMEN AND PELVIS: Liver and gallbladder are unremarkable. There is no biliary ductal dilatation. Pancreas and spleen are unremarkable. No adrenal mass is detected. Kidneys are without calculi or hydronephrosis. Aorta is nonaneurysmal. Bowel loops are normal in caliber. Appendix is visualized and unremarkable. There is no free fluid or fluid collection. The bladder and prostate are unremarkable. No inflammatory changes are identified. Bony structures are nonacute. IMPRESSION: Unremarkable noncontrast CT of the abdomen and pelvis. Dictated by: Dictated on workstation # [id number]
[2021-11-03] MEDS ORDERED: KETOROLAC 30 MG/ML VIAL IVP ONE (16:15)
[2021-11-03] MEDS ORDERED: OMEP20TA56 PO (17:20)
--- NOTE | 2021-11-03 17:20 | ED Chest Pain ---
General Chief Complaint: Chest Pain Stated Complaint: CP Nursing Triage Note: PT AMB TO RM 8 WITH C/O CP THAT STARTED 3 HOURS AGO AND SOB. PT ALSO STATES HE COUGHED UP BLOOD TODAY AND "PASSED OUT" IN SOMEONES YARD AROUND 11 THIS MORNING. PT STATES HE DRANK A BEER AFTER HE WOKE UP Source: patient, old records Exam Limitations: no limitations History of Present Illness Date Seen by Provider: Nov 03, 2021 Time Seen by Provider: 12:33 Initial Comments This 51-year-old man presents to the emergency room with primary complaint of a left upper chest pain as well as diffuse abdominal pain. He drinks 4 large beers per day according to his report including beer this morning. He reports coughing up a small amount of dark red blood x1 this morning. He reports prior history of pancreatitis. He has no cardiac pathology that he is aware of. He has been seen in this emergency room numerous times for alcohol related issues and noncardiac chest pain. He reports being homeless and living in someone's garage. Allergies and Home Medications Allergies Coded Allergies: codeine (Verified Allergy, Unknown, 04/11/20) Uncoded Allergies: IV CONTRAST (Allergy, Unknown, 07/21/19) Patient Home Medication List Home Medication List Reviewed: Yes Amoxicillin (Amoxicillin) 500 Mg Capsule, 500 MG PO TID Prescribed by: CORA LAY on 02/21/21 155 Hydrocodone/Acetaminophen (Hydrocodone-Acetamin 5-325 mg) 1 Each Tablet, 1 TAB PO Q6H PRN for PAIN-MODERATE (5-7) Prescribed by: BLANQUITA COSTA on 05/14/21 0500 Methocarbamol (Methocarbamol) 750 Mg Tablet, 750 MG PO Q6-8HR Prescribed by: CORA LAY on 09/11/212041 Omeprazole (Omeprazole) 40 Mg Capsule., 40 MG PO DAILY Prescribed by: BLANQUITA COSTA on 05/14/21 0500 Omeprazole (Omeprazole) 20 Mg Tablet.dr, 20 MG PO BID Prescribed by: KUSUM PARKS on 11/03/21 172 Ondansetron (Ondansetron Odt) 4 Mg Tab.rapdis, 4 MG PO Q6H PRN for NAUSEA/VOMITING Prescribed by: BLANQUITA COSTA on 05/14/21 0500 Oxymetazoline HCl (Afrin) 15 Ml Mist, 1 SPRAY NS BID Prescribed by: CORA LAY on 02/21/21 155 Prednisone (Prednisone) 20 Mg Tab, 40 MG PO DAILY Prescribed by: CORA LAY on 09/11/212041 Review of Systems Review of Systems Constitutional: no symptoms reported EENTM: No Symptoms Reported Respiratory: See HPI Cardiovascular: See HPI Gastrointestinal: See HPI Genitourinary: No Symptoms Reported Musculoskeletal: no symptoms reported Skin: no symptoms reported Psychiatric/Neurological: See HPI Endocrine: No Symptoms Reported Past Myjusnu-Naqsqh-Vshcra Hx Patient Social History Tobacco Use?: Yes Tobacco type used: Cigarettes Smoking Status: Current Someday Smoker Substance use?: No Alcohol Use?: Yes Alcohol type: Beer Alcohol Frequency: Daily Pt feels they are or have been: No Immunizations Up To Date Tetanus Booster (TDap): Unknown Influenza Vaccine Up-to-Date: No; Not Current First/Initial COVID19 Vaccinat: N/A Second COVID19 Vaccination Kp: N/A Third COVID19 Vaccination Date: N/A Seasonal Allergies Seasonal Allergies: No Past Medical History Surgery/Hospitalization HX: HEART MURMER ORTHO SURGERY Surgeries: Yes Orthopedic (Trauma surgery to the left lower extremity) Respiratory: No Cardiac: No Neurological: No Genitourinary: No Gastrointestinal: No Musculoskeletal: No Endocrine: No HEENT: No Cancer: No Psychosocial: Yes (Alcohol dependence, homelessness) Integumentary: No Blood Disorders: No Family Medical History No Pertinent Family Hx Physical Exam Vital Signs Vital Signs - First Documented 11/03/21 12:34 Temp 36.2 Pulse 79 Resp 20 B/P (MAP) 133/97 (109) Capillary Refill : Height, Weight, BMI Height: '" Weight: lbs. oz. kg; 22.00 BMI Method: General Appearance: WD/WN, Mild Distress, Thin HEENT: PERRL/EOMI, Normal ENT Inspection, Other (Very poor dentition, somewhat dry mucous membranes) Neck: Normal Inspection; No JVD Respiratory: Chest Non Tender, Lungs Clear, Normal Breath Sounds, No Accessory Muscle Use Cardiovascular: Regular Rate, Rhythm, No Edema, No Murmur, Normal Peripheral Pulses Gastrointestinal: Normal Bowel Sounds, Soft; No Distended; Tenderness (Diffuse moderate to severe tenderness) Extremity: Normal Inspection, Non Tender, No Calf Tenderness, No Pedal Edema Neurologic/Psychiatric: Alert, Oriented x3, No Motor/Sensory Deficits, Normal 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, 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2 fL Immature Granulocyte % (Auto) 0 % Neutrophils (%) (Auto) 58 42-75 % Lymphocytes (%) (Auto) 27 12-44 % Monocytes (%) (Auto) 11 0-12 % Eosinophils (%) (Auto) 3 0-10 % Basophils (%) (Auto) 1 0-10 % Neutrophils # (Auto) 3.8 1.8-7.8 10^3/uL Lymphocytes # (Auto) 1.8 1.0-4.0 10^3/uL Monocytes # (Auto) 0.7 0.0-1.0 10^3/uL Eosinophils # (Auto) 0.2 0.0-0.3 10^3/uL Basophils # (Auto) 0.0 0.0-0.1 10^3/uL Immature Granulocyte # (Auto) 0.0 0.0-0.1 10^3/uL Prothrombin Time 12.1 L 12.2-14.7 SEC INR Comment 0.9 0.8-1.4 Activated Partial Thromboplast Time 28 24-35 SEC D-Dimer < 0.27 0.00-0.49 UG/ML Sodium Level 141 135-145 MMOL/L Potassium Level 4.2 3.6-5.0 MMOL/L Chloride Level 103 98-107 MMOL/L Carbon Dioxide Level 26 21-32 MMOL/L Anion Gap 12 5-14 MMOL/L Blood Urea Nitrogen 5 L 7-18 MG/DL Creatinine 0.90 0.60-1.30 MG/DL Estimat Glomerular Filtration Rate 103 BUN/Creatinine Ratio 6 Glucose Level 92 70-105 MG/DL Calcium Level 9.0 8.5-10.1 MG/DL Corrected Calcium 8.5-10.1 MG/DL Magnesium Level 2.1 1.6-2.4 MG/DL Total Bilirubin 0.3 0.1-1.0 MG/DL Aspartate Amino Transf (AST/SGOT) 31 5-34 U/L Alanine Aminotransferase (ALT/SGPT) 19 0-55 U/L Alkaline Phosphatase 103 40-136 U/L Myoglobin 27.1 10.0-92.0 NG/ML Troponin I < 0.028 < 0.028 <0.028 NG/ML C-Reactive Protein High Sensitivity 0.36 0.00-0.50 MG/DL Total Protein 7.8 6.4-8.2 GM/DL Albumin 4.6 H 3.2-4.5 GM/DL Lipase 99 H 8-78 U/L Serum Alcohol 311 *H <10 MG/DL Urine Opiates Screen NEGATIVE NEGATIVE Urine Oxycodone Screen NEGATIVE NEGATIVE Urine Methadone Screen NEGATIVE NEGATIVE Urine Propoxyphene Screen NEGATIVE NEGATIVE Urine Barbiturates Screen NEGATIVE NEGATIVE Ur Tricyclic Antidepressants Screen NEGATIVE NEGATIVE Urine Phencyclidine Screen NEGATIVE NEGATIVE Urine Amphetamines Screen NEGATIVE NEGATIVE Urine Methamphetamines Screen NEGATIVE NEGATIVE Urine Benzodiazepines Screen NEGATIVE NEGATIVE Urine Cocaine Screen NEGATIVE NEGATIVE Urine Cannabinoids Screen POSITIVE H NEGATIVE Influenza Type A (RT-PCR) Not Detected Not Detecte Influenza Type B (RT-PCR) Not Detected Not Detecte SARS-CoV-2 RNA (RT-PCR) Not Detected Not Detecte My Orders Orders - KUSUM BAILEY MD Ekg Tracing (11/03/21 12:33) Cbc With Automated Diff (11/03/21 12:36) Magnesium (11/03/21 12:36) Chest 1 View, Ap/Pa Only (11/03/21 12:36) Comprehensive Metabolic Panel (11/03/21 12:36) Myoglobin Serum (11/03/21 12:36) Protime With Inr (11/03/21 12:36) Partial Thromboplastin Time (11/03/21 12:36) O2 (11/03/21 12:36) Monitor-Rhythm Ecg Trace Only (11/03/21 12:36) Ed Iv/Invasive Line Start (11/03/21 12:36) Lipase (11/03/21 12:36) Troponin I David (11/03/21 12:36) Alcohol (11/03/21 12:36) Hs C Reactive Protein (11/03/21 12:47) Drug Screen Stat (Urine) (11/03/21 12:47) Fentanyl Inj (Sublimaze Injection) (11/03/21 13:00) Covid 19 Inhouse Test (11/03/21 12:47) Influenza A And B By Pcr (11/03/21 12:47) Pantoprazole Injection (Protonix Injecti (11/03/21 13:00) Troponin I [place] (11/03/21 14:40) Fibrin Degradation Products (11/03/21 13:43) Ct Chest/Abdomen/Pelvis Wo (11/03/21 14:26) Ketorolac Injection (Toradol Injection) (11/03/21 16:15) Medications Given in ED Current Medications Medications Dose Ordered Sig/Reginald Route Start Time Stop Time Status Last Admin Dose Admin Fentanyl Citrate 50 mcg ONCE ONCE IVP 11/03/21 13:00 11/03/21 13:01 DC 11/03/21 12:58 50 MCG Ketorolac Tromethamine 15 mg ONCE ONCE IVP 11/03/21 16:15 11/03/21 16:16 DC 11/03/21 16:21 15 MG Pantoprazole 80 mg ONCE ONCE IV 11/03/21 13:00 11/03/21 13:01 DC 11/03/21 12:58 80 MG Vital Signs/I&O 11/03/21 11/03/21 12:34 17:27 Temp 36.2 36.2 Pulse 79 81 Resp 20 16 B/P (MAP) 133/97 (109) 139/108 Blood Pressure Mean: 109 Progress Progress Note : Progress Note Patient was treated with fentanyl and Protonix. Thorough work-up was pursued. Due to his rather intense abdominal tenderness, CT of the chest, abdomen, and pelvis was obtained. No significant findings were reported to explain his pain. Lipase was minimally elevated and not likely a significant contributing factor. Pain did gradually subside after giving Protonix. Residual pain was treated with a Toradol injection. Repeat troponin was negative. Ultimately, patient was advised to taper off alcohol and discontinue drinking. PPI was prescribed. Patient states he intends to return to [place] where he can undergo a rehab program. He is presently trying to save money for his trip to [place]. See discharge instructions for further discussion. Initial ECG Impression Date: Nov 03, 2021 Initial ECG Impression Time: 12:37 Initial ECG Rate: 73 Initial ECG Rhythm: Normal Sinus Initial ECG Intervals: Normal Initial ECG Impression: Normal Comment Normal sinus rhythm with no ST elevation or depression. No abnormal intervals or axis deviation. Diagnostic Imaging Diagonstic Imaging: Xray Plain Films/CT/US/NM/MRI: chest Comments NAME: TRISHA [employer]AUDHRY [employer] REC#: [id number] PT STATUS: REG ER : 1970 PHYSICIAN: KUSUM BAILEY MD ADMIT DATE: 11/03/21/ER Signed Date of Exam:11/03/21 CHEST 1 VIEW, AP/PA ONLY INDICATION: Chest pain. COMPARISON: 05/14/2021. FINDINGS: Single frontal view of the chest demonstrates normal heart size and pulmonary vascularity. The lungs are well aerated and clear. No large pleural effusion or pneumothorax is seen. The visualized osseous structures show no acute abnormalities. IMPRESSION: 1. No acute cardiopulmonary process. Dictated by: Dictated on workstation # [id number] Dict: 11/03/21 1304 Trans: 11/03/21 1654 [id number] Interpreted by: LAUREN BERRIOS MD Electronically signed by: LAUREN BERRIOS MD 11/03/21 1654 Diagonstic Imaging: CT Plain Films/CT/US/NM/MRI: chest, abdomen, pelvis Comments NAME: TRISHA CHAUDHRY [employer] REC#: [id number] PT STATUS: DEP ER : 1970 PHYSICIAN: KUSUM BAILEY MD ADMIT DATE: 11/03/21/ER Signed Date of Exam:11/03/21 CT CHEST/ABDOMEN/PELVIS WO PROCEDURE: CT chest, abdomen, and pelvis without contrast. TECHNIQUE: Multiple contiguous axial images were obtained through the chest, abdomen, and pelvis without the use of intravenous contrast. Auto Exposure Controls were utilized during the CT exam to meet ALARA standards for radiation dose reduction. INDICATION: Sharp chest pain. COMPARISON: Comparison is made with prior CT from 02/21/2021. FINDINGS: CT CHEST: No pericardial or pleural fluid is detected. No definite axillary, hilar or mediastinal lymphadenopathy is identified. There are some emphysematous changes in both lungs. No pulmonary infiltrate is seen. No mass or evidence of pneumothorax is detected. Bony structures are nonacute. IMPRESSION: Unremarkable noncontrast CT of the chest apart from mild emphysematous changes. CT ABDOMEN AND PELVIS: Liver and gallbladder are unremarkable. There is no biliary ductal dilatation. Pancreas and spleen are unremarkable. No adrenal mass is detected. Kidneys are without calculi or hydronephrosis. Aorta is nonaneurysmal. Bowel loops are normal in caliber. Appendix is visualized and unremarkable. There is no free fluid or fluid collection. The bladder and prostate are unremarkable. No inflammatory changes are identified. Bony structures are nonacute. IMPRESSION: Unremarkable noncontrast CT of the abdomen and pelvis. Dictated by: Dictated on workstation # [id number] Dict: 11/03/21 1526 Trans: 11/03/21 1749 [id number] Interpreted by: LISA TERRY MD Electronically signed by: LISA TERRY MD 11/03/211748 Departure Impression Primary Impression: Atypical chest pain Additional Impressions: Abdominal pain Qualified Codes: R10.84 - Generalized abdominal pain Alcohol dependence Qualified Codes: F10.29 - Alcohol dependence with unspecified alcohol- induced disorder Elevated lipase Disposition: HOME, SELF-CARE Condition: Improved Departure-Patient Inst. Decision time for Depature: 17:18 Referrals: NO,LOCAL PHYSICIAN (PCP/Family) Primary Care Physician Patient Instructions: ALCOHOL AND SUBSTANCE ABUSE, Abdominal Pain, Adult ED, Chest Pain Add. Discharge Instructions: Adhere to a noncarbonated clear liquid diet for the remainder of today. Keep yo ur alcohol consumption to a minimum, just enough to keep you out of withdraw. In general, avoid stopping alcohol abruptly. Gradually taper your consumption over a couple of weeks to avoid major withdrawal symptoms. Follow-up with your primary care provider as soon as possible. Start omeprazole as prescribed to help protect your stomach. Return to care if you have worsening symptoms. All discharge instructions reviewed with patient and/or family. Voiced understanding. Scripts Omeprazole (Omeprazole) 20 Mg Tablet. 20 MG PO BID, #60 TAB Prov: KUSUM BAILEY MD 11/03/21 KUSUM BAILEY MD Nov 03, 2021 17:20
[2021-11-03 17:27] VITALS: BP 139/108
== END 2021-11-03 17:27 | disposition home or self-care (01) ==
LOC: EDUNIT# 12:30 → ER 12:33
DX: R07.89 Other chest pain (principal); R10.84 Generalized abdominal pain; F10.20 Alcohol dependence, uncomplicated; F17.210 Nicotine dependence, cigarettes, uncomplicated; Z20.822 Contact with and (suspected) exposure to COVID-19; Z28.310 Unvaccinated for COVID-19; Y90.8 Blood alcohol level of 240 mg/100 ml or more
CPT/HCPCS: 71045; 71250; 74176; 80053; 80306; 83690; 83735; 83874; 84484; 85025; 85379; 85610; 85730; 86141; 87636; 93041; G0480; 36415; 80320; 93005

== ENCOUNTER 2022-02-03 14:42 | Emergency (ER) | payer SELFPAY ==
[~2022-02-03 14:42] MED LIST changes: +OMEP20TA56 PO
--- NOTE | 2022-02-03 15:24 | ED Upper Extremity ---
General Chief Complaint: Upper Extremity Stated Complaint: RIGHT THUMB PAIN Nursing Triage Note: PT AMB TO FT WITH C/O R THUMB PAIN THAT STARTED TODAY WHILE AT WORK AND R LEG PAIN THAT HAS BEEN GOING ON X2 WEEKS. PT DENIES INJURY TO EITHER Source: patient Exam Limitations: no limitations History of Present Illness Date Seen by Provider: Feb 03, 2022 Time Seen by Provider: 15:24 Allergies and Home Medications Allergies Coded Allergies: codeine (Verified Allergy, Unknown, 04/11/20) Uncoded Allergies: IV CONTRAST (Allergy, Unknown, 07/21/19) Patient Home Medication List Amoxicillin (Amoxicillin) 500 Mg Capsule, 500 MG PO TID Prescribed by: CORA LAY on 02/21/21 1559 Hydrocodone/Acetaminophen (Hydrocodone-Acetamin 5-325 mg) 1 Each Tablet, 1 TAB PO Q6H PRN for PAIN-MODERATE (5-7) Prescribed by: BLANQUITA COSTA on 05/14/21 0500 Methocarbamol (Methocarbamol) 750 Mg Tablet, 750 MG PO Q6-8HR Prescribed by: CORA LAY on 09/11/212041 Omeprazole (Omeprazole) 40 Mg Capsule.dr, 40 MG PO DAILY Prescribed by: BLANQUITA COSTA on 05/14/21 0500 Omeprazole (Omeprazole) 20 Mg Tablet.dr, 20 MG PO BID Prescribed by: KUSUM PARKS on 11/03/21 1720 Ondansetron (Ondansetron Odt) 4 Mg Tab.rapdis, 4 MG PO Q6H PRN for NAUSEA/VOMITING Prescribed by: BLANQUITA COSTA on 05/14/21 0500 Oxymetazoline HCl (Afrin) 15 Ml Mist, 1 SPRAY NS BID Prescribed by: CORA LAY on 02/21/21 155 Prednisone (Prednisone) 20 Mg Tab, 40 MG PO DAILY Prescribed by: CORA LAY on 09/11/212041 Past Cguufmn-Ovuing-Unveja Hx Patient Social History Tobacco Use?: Yes Tobacco type used: Cigarettes Smoking Status: Current Everyday Smoker Substance use?: No Alcohol Use?: Yes Alcohol Frequency: Daily Pt feels they are or have been: No Immunizations Up To Date Tetanus Booster (TDap): Unknown Influenza Vaccine Up-to-Date: No; Not Current First/Initial COVID19 Vaccinat: N/A Second COVID19 Vaccination Kp: N/A Third COVID19 Vaccination Date: N/A Seasonal Allergies Seasonal Allergies: No Past Medical History Surgery/Hospitalization HX: HEART MURMER ORTHO SURGERY Surgeries: Yes Orthopedic Respiratory: No Cardiac: No Neurological: No Genitourinary: No Gastrointestinal: No Musculoskeletal: No Endocrine: No HEENT: No Cancer: No Psychosocial: Yes (Alcohol dependence, homelessness) Integumentary: No Blood Disorders: No Family Medical History No Pertinent Family Hx Physical Exam Vital Signs Vital Signs - First Documented 02/03/22 14:52 Temp 36.8 Pulse 94 Resp 14 B/P (MAP) 124/87 (99) Capillary Refill : Height, Weight, BMI Height: '" Weight: lbs. oz. kg; 22.00 BMI Method: Procedures/Interventions Suture Size: 4-0 F5-2 Progress/Results/Core Measures Results/Orders My Orders Orders - [employer] Hand, Right, 3 Views (02/03/22 15:24) Vital Signs/I&O 02/03/22 14:52 Temp 36.8 Pulse 94 Resp 14 B/P (MAP) 124/87 (99) Blood Pressure Mean: 99 Departure Impression Primary Impression: Right hand pain Disposition: 01 HOME, SELF-CARE Condition: Improved Departure-Patient Inst. Decision time for Depature: 15:53 Referrals: NO,LOCAL PHYSICIAN (PCP/Family) Primary Care Physician Patient Instructions: Hand Pain Add. Discharge Instructions: Plan: 1. Discharge home. 2. Follow up with provider of choice next week. 3. Keep affected site elevated above your heart over the next 72 hours to reduce swelling and pain. This is when the most swelling will occur. 4. Use ice 20 minutes at a time for swelling and pain. 5. Wear mony bandage as directed. Re-wrap at least twice daily. 6. If extremity becomes numb, cold, more painful, blanched or discolored or excessively swollen, contact your physician or return to the ER. 7. May take Tylenol or Ibuprofen as needed for pain per package. 8. Return to ER for any new, concerning, or worsening symptoms. All discharge instructions reviewed with patient and/or family. Voiced understanding. [employer] Feb 03, 2022 15:24
--- NOTE | 2022-02-03 15:45 | Diagnostic Imaging Report ---
INDICATION: Right hand pain. TECHNIQUE: AP, oblique and lateral views of the right hand are obtained. FINDINGS: No fracture or malalignment is identified. There is mild marginal spurring at the first carpometacarpal joint. No lytic or sclerotic lesion is seen. IMPRESSION: Findings of early osteoarthritis at the first carpometacarpal joint without other acute abnormality detected. Dictated by: Dictated on workstation # [id number]
[2022-02-03] MEDS ORDERED: IBUPROFEN 600 MG (MOTRIN) TAB PO ONE (16:00)
[2022-02-03 16:07] VITALS: BP 124/87
== END 2022-02-03 16:08 | disposition home or self-care (01) ==
LOC: EDUNIT# 14:42 → ER 14:44
DX: M79.644 Pain in right finger(s) (principal); F17.210 Nicotine dependence, cigarettes, uncomplicated; Z28.310 Unvaccinated for COVID-19
CPT/HCPCS: 73130

== ENCOUNTER 2022-03-16 11:29 | Emergency (ER) | payer SELFPAY ==
[~2022-03-16] VITALS: Ht 175 cm; Wt 61.0 kg
[2022-03-16] MEDS ORDERED: fentaNYL INJ 100 MCG/2 ML AMP IVP ONE (11:45)
[2022-03-16 11:52] LABS: BASOPHILS # (AUTO) 0.1 10^3/uL (0.0-0.1); BASOPHILS % (AUTO) 1 % (0-10); EOSINOPHILS # (AUTO) 0.2 10^3/uL (0.0-0.3); EOSINOPHILS % (AUTO) 2 % (0-10); HEMATOCRIT 47 % (40-54); HEMOGLOBIN 15.9 g/dL (13.3-17.7); LYMPHOCYTES # (AUTO) 1.7 10^3/uL (1.0-4.0); LYMPHOCYTES % (AUTO) 22 % (12-44); MEAN CORPUSCULAR HEMOGLOBIN 34 pg (25-34); MEAN CORPUSCULAR HGB CONC 34 g/dL (32-36); MEAN CORPUSCULAR VOLUME 99 fL (80-99); MEAN PLATELET VOLUME 9.7 fL (9.0-12.2); MONOCYTES # (AUTO) 0.6 10^3/uL (0.0-1.0); MONOCYTES % (AUTO) 8 % (0-12); NEUTROPHILS # (AUTO) 5.2 10^3/uL (1.8-7.8); NEUTROPHILS % (AUTO) 67 % (42-75); PLATELET COUNT 229 10^3/uL (130-400); WHITE BLOOD COUNT 7.9 10^3/uL (4.3-11.0)
[2022-03-16 12:04] LABS: CALCIUM 8.4 MG/DL (8.5-10.1)
[2022-03-16 12:05] LABS: TOTAL PROTEIN 6.9 GM/DL (6.4-8.2)
[2022-03-16 12:06] LABS: INR 0.9 (0.8-1.4); PROTHROMBIN TIME PATIENT 12.3 SEC (12.2-14.7)
[2022-03-16 12:07] LABS: BILIRUBIN,TOTAL 0.2 MG/DL (0.1-1.0)
[2022-03-16 12:08] LABS: CREATININE SERUM 0.97 MG/DL (0.60-1.30)
[2022-03-16 12:09] LABS: LIPASE 116 U/L (8-78)
[2022-03-16 12:12] LABS: MAGNESIUM 1.8 MG/DL (1.6-2.4)
--- NOTE | 2022-03-16 12:34 | Diagnostic Imaging Report ---
CLINICAL INDICATION: Patient with right upper abdominal pain and shortness of air all morning. EtOH use. EXAM: Portable chest x-ray, upright view. COMPARISON: Chest x-ray dated 11/03/2021. FINDINGS: Lungs/pleura: Lungs are clear. There is no pneumothorax. There is no pleural effusion. Mediastinum: Unremarkable. Pulmonary vasculature: Unremarkable. Heart: Unremarkable. Bones/extrathoracic soft tissue: Unremarkable. IMPRESSION: There is no radiographic evidence of acute cardiopulmonary process. Dictated by: Dictated on workstation # [id number]
[2022-03-16] MEDS ORDERED: ONDANSETRON 4 MG/2 ML (SDV) Z0FRAN IVP ONE ×2 (12:45→16:15)
[2022-03-16] MEDS ORDERED: PANTOPRAZOLE 40 MG (PROTONIX) VIAL IV ONE (12:45)
--- NOTE | 2022-03-16 13:17 | Diagnostic Imaging Report ---
PROCEDURE: CT chest, abdomen, and pelvis without contrast. TECHNIQUE: Multiple contiguous axial images were obtained through the chest, abdomen, and pelvis without the use of intravenous contrast. Auto Exposure Controls were utilized during the CT exam to meet ALARA standards for radiation dose reduction. INDICATION: Shortness of air, right-sided weakness. COMPARISON: 10/03/2021 CHEST: No lung mass or suspicious pulmonary nodule. No findings of consolidating pneumonia or pulmonary edema. No significant atelectasis. No effusion or pneumothorax. Aorta is nonaneurysmal there is no thoracic adenopathy. There is no acute or suspect soft tissue or osseous chest wall abnormality. Abdomen/pelvis: There is no bowel obstruction. There is no ascites, abscess, hematoma nor acute fluid collection. No perienteric or pericolonic edema. No inflammatory changes. Liver, spleen, adrenals, pancreas, gallbladder and bile ducts unremarkable. Is a punctate there are 2 punctate calculi 1 to 2 mm nonobstructing within right lower pole renal calyces. No ureteral stone. No perinephric edema. The bony structures are nonacute. Gallbladder normal. No bile duct dilatation. IMPRESSION: Punctate nonobstructing nephrolithiasis right kidney, no acute appearing abnormality at CT chest abdomen and pelvis Dictated by: Dictated on workstation # [id number]
--- NOTE | 2022-03-16 16:07 | ED Abdominal Pain ---
General Chief Complaint: Abdominal/GI Problems Stated Complaint: CHEST PAINS Nursing Triage Note: pt to ed with c/o r upper abd pain and soa all morning. states he is homeless, drinks $13 worth of liqour per day. Source of Information: Patient Exam Limitations: No Limitations History of Present Illness Date Seen by Provider: Mar 16, 2022 Allergies and Home Medications Allergies Coded Allergies: codeine (Verified Allergy, Unknown, 04/11/20) Uncoded Allergies: IV CONTRAST (Allergy, Unknown, 07/21/19) Patient Home Medication List Amoxicillin (Amoxicillin) 500 Mg Capsule, 500 MG PO TID Prescribed by: CORA LAY on 02/21/21 1559 Hydrocodone/Acetaminophen (Hydrocodone-Acetamin 5-325 mg) 1 Each Tablet, 1 TAB PO Q6H PRN for PAIN-MODERATE (5-7) Prescribed by: BLANQUITA COSTA on 05/14/21 0500 Methocarbamol (Methocarbamol) 750 Mg Tablet, 750 MG PO Q6-8HR Prescribed by: CORA LAY on 09/11/212041 Omeprazole (Omeprazole) 40 Mg Capsule.dr, 40 MG PO DAILY Prescribed by: BLANQUITA COSTA on 05/14/21 0500 Omeprazole (Omeprazole) 20 Mg Tablet.dr, 20 MG PO BID Prescribed by: KUSUM PARKS on 11/03/21 1720 Ondansetron (Ondansetron Odt) 4 Mg Tab.rapdis, 4 MG PO Q6H PRN for NAUSEA/VOMITING Prescribed by: BLANQUITA COSTA on 05/14/21 0500 Oxymetazoline HCl (Afrin) 15 Ml Mist, 1 SPRAY NS BID Prescribed by: CORA LAY on 02/21/21 155 Prednisone (Prednisone) 20 Mg Tab, 40 MG PO DAILY Prescribed by: CORA LAY on 09/11/212041 Past Jrpvvol-Bfmkkd-Hbaanp Hx Patient Social History Tobacco Use?: Yes Tobacco type used: Cigarettes Smoking Status: Current Everyday Smoker Substance use?: No Alcohol Use?: Yes Alcohol type: Beer, Hard Liquor Alcohol Frequency: Daily Pt feels they are or have been: No Immunizations Up To Date Tetanus Booster (TDap): Unknown First/Initial COVID19 Vaccinat: N/A Second COVID19 Vaccination Kp: N/A Third COVID19 Vaccination Date: N/A Seasonal Allergies Seasonal Allergies: No Past Medical History Surgery/Hospitalization HX: HEART MURMER ORTHO SURGERY Surgeries: Yes Orthopedic Respiratory: No Cardiac: No Neurological: No Genitourinary: No Gastrointestinal: No Musculoskeletal: No Endocrine: No HEENT: No Cancer: No Psychosocial: Yes (Alcohol dependence, homelessness) Integumentary: No Blood Disorders: No Family Medical History No Pertinent Family Hx Physical Exam Vital Signs Vital Signs - First Documented 03/16/22 11:31 Temp 36.7 Pulse 105 Resp 22 B/P (MAP) 144/106 (119) Pulse Ox 97 Capillary Refill : Height/Weight/BMI Height: '" Weight: lbs. oz. kg; 19.00 BMI Method: Procedures/Interventions Suture Size: 4-0 F5-2 Progress/Results/Core Measures Results/Orders Lab Results Laboratory Tests Test 03/16/22 11:35 03/16/22 14:21 Range/Units White Blood Count 7.9 4.3-11.0 10^3/uL Red Blood Count 4.70 4.30-5.52 10^6/uL Hemoglobin 15.9 13.3-17.7 g/dL Hematocrit 47 40-54 % Mean Corpuscular Volume 99 80-99 fL Mean Corpuscular Hemoglobin 34 25-34 pg Mean Corpuscular Hemoglobin Concent 34 32-36 g/dL Red Cell Distribution Width 15.2 H 10.0-14.5 % Platelet Count 229 130-400 10^3/uL Mean Platelet Volume 9.7 9.0-12.2 fL Immature Granulocyte % (Auto) 1 % Neutrophils (%) (Auto) 67 42-75 % Lymphocytes (%) (Auto) 22 12-44 % Monocytes (%) (Auto) 8 0-12 % Eosinophils (%) (Auto) 2 0-10 % Basophils (%) (Auto) 1 0-10 % Neutrophils # (Auto) 5.2 1.8-7.8 10^3/uL Lymphocytes # (Auto) 1.7 1.0-4.0 10^3/uL Monocytes # (Auto) 0.6 0.0-1.0 10^3/uL Eosinophils # (Auto) 0.2 0.0-0.3 10^3/uL Basophils # (Auto) 0.1 0.0-0.1 10^3/uL Immature Granulocyte # (Auto) 0.0 0.0-0.1 10^3/uL Prothrombin Time 12.3 12.2-14.7 SEC INR Comment 0.9 0.8-1.4 Activated Partial Thromboplast Time 28 24-35 SEC Sodium Level 143 135-145 MMOL/L Potassium Level 4.0 3.6-5.0 MMOL/L Chloride Level 110 H 98-107 MMOL/L Carbon Dioxide Level 19 L 21-32 MMOL/L Anion Gap 14 5-14 MMOL/L Blood Urea Nitrogen 6 L 7-18 MG/DL Creatinine 0.97 0.60-1.30 MG/DL Estimat Glomerular Filtration Rate 95 BUN/Creatinine Ratio 6 Glucose Level 101 70-105 MG/DL Calcium Level 8.4 L 8.5-10.1 MG/DL Corrected Calcium 8.4 L 8.5-10.1 MG/DL Magnesium Level 1.8 1.6-2.4 MG/DL Total Bilirubin 0.2 0.1-1.0 MG/DL Aspartate Amino Transf (AST/SGOT) 44 H 5-34 U/L Alanine Aminotransferase (ALT/SGPT) 27 0-55 U/L Alkaline Phosphatase 112 40-136 U/L Myoglobin 24.7 10.0-92.0 NG/ML Troponin I < 0.028 < 0.028 <0.028 NG/ML C-Reactive Protein High Sensitivity 0.06 0.00-0.50 MG/DL Total Protein 6.9 6.4-8.2 GM/DL Albumin 4.0 3.2-4.5 GM/DL Lipase 116 H 8-78 U/L Serum Alcohol 396 *H <10 MG/DL My Orders Orders - KUSUM BAILEY MD Cbc With Automated Diff (03/16/22 11:35) Magnesium (03/16/22 11:35) Chest 1 View, Ap/Pa Only (03/16/22 11:35) Ekg Tracing (03/16/22 11:35) Comprehensive Metabolic Panel (03/16/22 11:35) Myoglobin Serum (03/16/22 11:35) Protime With Inr (03/16/22 11:35) Partial Thromboplastin Time (03/16/22 11:35) O2 (03/16/22 11:35) Monitor-Rhythm Ecg Trace Only (03/16/22 11:35) Lipid Panel (03/17/22 06:00) Ed Iv/Invasive Line Start (03/16/22 11:35) Troponin I [place] (03/16/22 11:35) Hs C Reactive Protein (03/16/22 11:39) Lipase (03/16/22 11:39) Fentanyl Inj (Sublimaze Injection) (03/16/22 11:45) Alcohol (03/16/22 11:41) Ct Chest/Abdomen/Pelvis Wo (03/16/22 12:39) Troponin I [place] (03/16/22 13:35) Ondansetron Injection (Zofran Injectio (03/16/22 12:45) Pantoprazole Injection (Protonix Injecti (03/16/22 12:45) Ondansetron Injection (Zofran Injectio (03/16/22 16:15) Antacid Suspension (Mylanta Suspension (03/16/22 16:15) Lorazepam Tablet (Ativan Tablet) (03/16/22 16:15) Lidocaine 2% Viscous 15 Ml (Xylocaine Vi (03/16/22 16:15) Medications Given in ED Current Medications Medications Dose Ordered Sig/Reginald Route Start Time Stop Time Status Last Admin Dose Admin Fentanyl Citrate 50 mcg ONCE ONCE IVP 03/16/22 11:45 03/16/22 11:46 DC 03/16/22 11:52 50 MCG Ondansetron HCl 8 mg ONCE ONCE IVP 03/16/22 12:45 03/16/22 12:46 DC 03/16/22 12:49 8 MG Pantoprazole 40 mg ONCE ONCE IV 03/16/22 12:45 03/16/22 12:46 DC 03/16/22 12:49 40 MG Vital Signs/I&O 03/16/22 11:31 Temp 36.7 Pulse 105 Resp 22 B/P (MAP) 144/106 (119) Pulse Ox 97 Blood Pressure Mean: 119 Initial ECG Impression Date: Mar 16, 2022 Initial ECG Impression Time: 12:04 Initial ECG Rate: 91 Initial ECG Rhythm: Normal Sinus Initial ECG Intervals: Normal Initial ECG Impression: Normal Comment Normal sinus rhythm with no ST elevation or depression. No abnormal intervals or axis deviation. Departure Impression Primary Impression: Generalized abdominal pain Additional Impressions: Pancreatitis Qualified Codes: K85.20 - Alcohol induced acute pancreatitis without necrosis or infection Alcohol dependence Qualified Codes: F10.288 - Alcohol dependence with other alcohol-induced disorder Disposition: 01 HOME, SELF-CARE Condition: Improved Departure-Patient Inst. Decision time for Depature: 16:05 Referrals: [facility] [place] NO,LOCAL PHYSICIAN (PCP) Primary Care Physician Patient Instructions: ALCOHOL AND SUBSTANCE ABUSE, Abdominal Pain, Adult ED, Pancreatitis (DC) Add. Discharge Instructions: Admission to the hospital is recommended. By declining admission, you risk worsening pancreatitis and potentially other life-threatening conditions. Drink the minimum amount of alcohol necessary to avoid severe withdrawal symptoms. Do not abruptly quit alcohol as this may cause life-threatening withdrawal symptoms including uncontrollable seizures. Take an antacid medication such as Pepcid (famotidine) 20 mg twice daily or omeprazole 20 mg twice daily. Follow-up with a primary care provider soon as possible. The [facility] would be a good place to start as they also have substance abuse treatment services and can help with your alcohol dependence. Return to the ER if you change your mind about being admitted or have worsening symptoms. All discharge instructions reviewed with patient and/or family. Voiced understanding. KUSUM BAILEY MD Mar 16, 2022 16:07
[2022-03-16] MEDS ORDERED: LIDOCAINE 2% VISCOUS 15 ML UDC PO ONE (16:15)
[2022-03-16] MEDS ORDERED: ANTACID SUSP 30 ML UDC (MYLANTA) PO ONE (16:15)
[2022-03-16] MEDS ORDERED: LORazepam 0.5 MG (ATIVAN) TABLET PO ONE (16:15)
[2022-03-16 16:18] VITALS: BP 136/88
== END 2022-03-16 16:18 | disposition home or self-care (01) ==
LOC: EDUNIT# 11:29 → ER 11:30
DX: K85.90 Acute pancreatitis without necrosis or infection, unspecified (principal); F10.20 Alcohol dependence, uncomplicated; F17.210 Nicotine dependence, cigarettes, uncomplicated; Z88.5 Allergy status to narcotic agent; Z28.310 Unvaccinated for COVID-19
CPT/HCPCS: 71045; 71250; 74176; 80053; 83690; 83735; 83874; 84484; 85025; 85610; 85730; 86141; 93005; 93041; 99284; G0480; 36415; 80320

== ENCOUNTER 2022-03-27 18:58 | Emergency (ER) | payer SELFPAY ==
[~2022-03-27] VITALS: Ht 172.7 cm; Wt 61.2 kg
[2022-03-27] MEDS ORDERED: NS IV 1000 ML 1,000 ML IV SCH (19:15)
[2022-03-27 19:24] LABS: BASOPHILS # (AUTO) 0.1 10^3/uL (0.0-0.1); BASOPHILS % (AUTO) 1 % (0-10); EOSINOPHILS # (AUTO) 0.1 10^3/uL (0.0-0.3); EOSINOPHILS % (AUTO) 1 % (0-10); HEMATOCRIT 51 % (40-54); HEMOGLOBIN 17.4 g/dL (13.3-17.7); LYMPHOCYTES # (AUTO) 1.5 10^3/uL (1.0-4.0); LYMPHOCYTES % (AUTO) 21 % (12-44); MEAN CORPUSCULAR HEMOGLOBIN 34 pg (25-34); MEAN CORPUSCULAR HGB CONC 34 g/dL (32-36); MEAN CORPUSCULAR VOLUME 99 fL (80-99); MEAN PLATELET VOLUME 9.1 fL (9.0-12.2); MONOCYTES # (AUTO) 0.7 10^3/uL (0.0-1.0); MONOCYTES % (AUTO) 10 % (0-12); NEUTROPHILS # (AUTO) 4.7 10^3/uL (1.8-7.8); NEUTROPHILS % (AUTO) 67 % (42-75); PLATELET COUNT 150 10^3/uL (130-400); WHITE BLOOD COUNT 7.1 10^3/uL (4.3-11.0)
--- NOTE | 2022-03-27 19:25 | ED Abdominal Pain ---
General Chief Complaint: Abdominal/GI Problems Stated Complaint: ABD PAIN Nursing Triage Note: PT TO RM 8 BY EMS WITH CC OF LOWER ABD PAIN. PT REPROTS WAS SEEN IN THE ER LAST WEEK FOR PANCREATITIS AND BOWEL INFLAMATION. PT STATES LEFT AMA LAST WEEK. Source of Information: Patient, EMS Exam Limitations: No Limitations History of Present Illness Date Seen by Provider: Mar 27, 2022 Time Seen by Provider: 19:00 Initial Comments Patient is a 51-year-old male who presents to the emergency department via EMS with approximately 2 weeks of abdominal pain. Patient has a history of alcohol use disorder and review of EMR shows historical diagnoses of pancreatitis. He was seen in this emergency department on 03/16 for similar symptoms. He was diagnosed with pancreatitis at that time and admission was offered. He declined and left. Patient states he is had some level of pain since that time. He states he felt like he was getting better until the last few days when he decided to completely abstain from alcohol. He states he began having shaking and nausea/vomiting. He did drink 4 beers today. He has not been taking any medications for the symptoms. He does not have a local physician. He states his desire is to be able to go to [place] where his family is located and get rehab from alcohol there. He currently is undomiciled and lives in a friend's garage. Denies any drug use. Allergies and Home Medications Allergies Coded Allergies: codeine (Verified Allergy, Unknown, 04/11/20) Uncoded Allergies: IV CONTRAST (Allergy, Unknown, 07/21/19) Patient Home Medication List Home Medication List Reviewed: Yes Amoxicillin (Amoxicillin) 500 Mg Capsule, 500 MG PO TID Prescribed by: CORA LAY on 02/21/21 1559 Hydrocodone/Acetaminophen (Hydrocodone-Acetamin 5-325 mg) 1 Each Tablet, 1 TAB PO Q6H PRN for PAIN-MODERATE (5-7) Prescribed by: BLANQUITA COSTA on 05/14/21 0500 Methocarbamol (Methocarbamol) 750 Mg Tablet, 750 MG PO Q6-8HR Prescribed by: CORA LAY on 09/11/21 204 Omeprazole (Omeprazole) 40 Mg Capsule., 40 MG PO DAILY Prescribed by: BLANQUITA COSTA on 05/14/21 0500 Omeprazole (Omeprazole) 20 Mg Tablet., 20 MG PO BID Prescribed by: KUSUM PARKS on 11/03/21 1720 Ondansetron (Ondansetron Odt) 4 Mg Tab.rapdis, 4 MG PO Q6H PRN for NAUSEA/VOMITING Prescribed by: BLANQUITA COSTA on 05/14/21 0500 Ondansetron (Ondansetron Odt) 8 Mg Tab.rapdis, 8 MG SL Q6H PRN for NAUSEA/VO MITING Prescribed by: Bret Sofia on 03/27/222104 Oxymetazoline HCl (Afrin) 15 Ml Mist, 1 SPRAY NS BID Prescribed by: CORA LAY on 02/21/21 155 Pantoprazole Sodium (Protonix) 40 Mg Granpkt.dr, 40 MG PO DAILY Prescribed by: Bret Sofia on 03/27/222104 Prednisone (Prednisone) 20 Mg Tab, 40 MG PO DAILY Prescribed by: CORA LAY on 09/11/212041 Review of Systems Review of Systems Constitutional: no symptoms reported EENTM: No Symptoms Reported Respiratory: No Symptoms Reported Cardiovascular: No Symptoms Reported Gastrointestinal: See HPI, Abdominal Pain, Nausea, Vomiting Genitourinary: No Symptoms Reported Musculoskeletal: no symptoms reported Skin: no symptoms reported Psychiatric/Neurological: No Symptoms Reported Endocrine: No Symptoms Reported Hematologic/Lymphatic: No Symptoms Reported Past Mhgqlzk-Qalkay-Osvdeu Hx Patient Social History Tobacco Use?: Yes Tobacco type used: Cigarettes Smoking Status: Current Everyday Smoker Substance use?: No Alcohol Use?: Yes Alcohol type: Beer Alcohol Frequency: Daily Pt feels they are or have been: No Immunizations Up To Date Tetanus Booster (TDap): Unknown First/Initial COVID19 Vaccinat: N/A Second COVID19 Vaccination Kp: N/A Third COVID19 Vaccination Date: N/A Seasonal Allergies Seasonal Allergies: No Past Medical History Surgery/Hospitalization HX: HEART MURMER ORTHO SURGERY Surgeries: Yes Orthopedic Respiratory: No Cardiac: No Neurological: No Genitourinary: No Gastrointestinal: No Musculoskeletal: No Endocrine: No HEENT: No Cancer: No Psychosocial: Yes (Alcohol dependence, homelessness) Integumentary: No Blood Disorders: No Family Medical History No Pertinent Family Hx Physical Exam Vital Signs Vital Signs - First Documented 03/27/22 03/27/22 18:58 21:18 Temp 36.5 Pulse 88 Resp 18 B/P (MAP) 133/108 (116) Pulse Ox 97 O2 Delivery Room Air Capillary Refill : Less Than 3 Seconds Height/Weight/BMI Height: '" Weight: lbs. oz. kg; 20.00 BMI Method: General Appearance: WD/WN, no apparent distress HEENT: PERRL/EOMI, normal ENT inspection, TMs normal, pharynx normal Neck: non-tender, full range of motion, supple, normal inspection Respiratory: chest non-tender, lungs clear, normal breath sounds, no respiratory distress, no accessory muscle use Cardiovascular: regular rate, rhythm Gastrointestinal: soft, tenderness Extremities: non-tender Neurologic/Psychiatric: no motor/sensory deficits, alert, normal mood/affect, oriented x 3 Skin: normal color, warm/dry Procedures/Interventions Suture Size: 4-0 F5-2 Progress/Results/Core Measures Results/Orders Lab Results Laboratory Tests Test 03/27/22 19:14 Range/Units White Blood Count 7.1 4.3-11.0 10^3/uL Red Blood Count 5.14 4.30-5.52 10^6/uL Hemoglobin 17.4 13.3-17.7 g/dL Hematocrit 51 40-54 % Mean Corpuscular Volume 99 80-99 fL Mean Corpuscular Hemoglobin 34 25-34 pg Mean Corpuscular Hemoglobin Concent 34 32-36 g/dL Red Cell Distribution Width 14.3 10.0-14.5 % Platelet Count 150 130-400 10^3/uL Mean Platelet Volume 9.1 9.0-12.2 fL Immature Granulocyte % (Auto) 0 % Neutrophils (%) (Auto) 67 42-75 % Lymphocytes (%) (Auto) 21 12-44 % Monocytes (%) (Auto) 10 0-12 % Eosinophils (%) (Auto) 1 0-10 % Basophils (%) (Auto) 1 0-10 % Neutrophils # (Auto) 4.7 1.8-7.8 10^3/uL Lymphocytes # (Auto) 1.5 1.0-4.0 10^3/uL Monocytes # (Auto) 0.7 0.0-1.0 10^3/uL Eosinophils # (Auto) 0.1 0.0-0.3 10^3/uL Basophils # (Auto) 0.1 0.0-0.1 10^3/uL Immature Granulocyte # (Auto) 0.0 0.0-0.1 10^3/uL Sodium Level 143 135-145 MMOL/L Potassium Level 4.1 3.6-5.0 MMOL/L Chloride Level 101 98-107 MMOL/L Carbon Dioxide Level 25 21-32 MMOL/L Anion Gap 17 H 5-14 MMOL/L Blood Urea Nitrogen 8 7-18 MG/DL Creatinine 0.92 0.60-1.30 MG/DL Estimat Glomerular Filtration Rate 101 BUN/Creatinine Ratio 9 Glucose Level 104 70-105 MG/DL Calcium Level 9.0 8.5-10.1 MG/DL Corrected Calcium 8.5-10.1 MG/DL Total Bilirubin 0.3 0.1-1.0 MG/DL Aspartate Amino Transf (AST/SGOT) 70 H 5-34 U/L Alanine Aminotransferase (ALT/SGPT) 32 0-55 U/L Alkaline Phosphatase 124 40-136 U/L Total Protein 7.8 6.4-8.2 GM/DL Albumin 4.6 H 3.2-4.5 GM/DL Lipase 143 H 8-78 U/L My Orders Orders - BRET SOFIA ASSISTANT PROFESSOR OF [employer] Cbc With Automated Diff (03/27/22 19:05) Comprehensive Metabolic Panel (03/27/22 19:05) Lipase (03/27/22 19:05) Iv/Invasive Line Insertion .IV INSERT (03/27/22 19:05) Ns Iv 1000 Ml (Sodium Chloride 0.9%) (03/27/22 19:15) Morphine Injection (Morphine Injection (03/27/22 19:26) Pantoprazole Injection (Protonix Injecti (03/27/22 20:30) Promethazine Injection (Phenergan Injec (03/27/22 20:30) Fentanyl Inj (Sublimaze Injection) (03/27/22 20:30) Medications Given in ED Current Medications Medications Dose Ordered Sig/Reginald Route Start Time Stop Time Status Last Admin Dose Admin Fentanyl Citrate 50 mcg ONCE ONCE IVP 03/27/22 20:30 03/27/22 20:31 DC 03/27/22 20:35 50 MCG Pantoprazole 40 mg ONCE ONCE IV 03/27/22 20:30 03/27/22 20:31 DC 03/27/22 20:34 40 MG Promethazine HCl 25 mg ONCE ONCE IVP 03/27/22 20:30 03/27/22 20:31 DC 03/27/22 20:35 25 MG Vital Signs/I&O 03/27/22 03/27/22 18:58 21:18 Temp 36.5 Pulse 88 80 Resp 18 20 B/P (MAP) 133/108 (116) 128/78 Pulse Ox 97 96 O2 Delivery Room Air Blood Pressure Mean: 116 Progress Progress Note : Progress Note Patient is nontoxic and well-hydrated on exam. Vital signs are overall reassuring. Abdominal exam is notable for epigastric and right upper quadrant abdominal tenderness to palpation. There is no abdominal rigidity or distention appreciated. No scleral icterus or jaundice noted. Laboratory evaluation is very reassuring. There is a mildly elevated lipase. Review of historical labs show a persistently elevated lipase. Patient had a CT scan performed at his previous ER visit that was acutely negative. No indication for repeat of this at this time. Patient does not meet criteria for diagnosis of acute pancreatitis as he does not have lipase elevation above 3 times normal and his recent CT scan did not show any peripancreatic inflammation or stranding. Patient likely has some level of chronic pancreatitis as well as gastritis from chronic alcohol abuse. There is no indication for acute hospitalization at this time. Patient was given normal saline bolus as well as analgesia and antiemetics. He was also given a dose of Protonix. I asked if he would have a way to fill any prescriptions he was given. He states he thinks he has someone who can help him fill anything that we prescribed. He will be discharged home with prescriptions for antiemetics and Protonix. Discussed importance of establishing care with a local PCP I also discussed that it was important he does not abruptly cease alcohol consumption as this could lead to alcohol withdrawal symptoms up to and including seizure and even . Return precautions for urgent symptomology discussed. Patient verbalized understanding Departure Impression Primary Impression: Chronic pancreatitis due to chronic alcoholism Disposition: HOME, SELF-CARE Condition: Stable Departure-Patient Inst. Decision time for Depature: 21:00 Referrals: [facility]/NAYANA BERMUDEZ,LOCAL PHYSICIAN (PCP) Primary Care Physician Patient Instructions: Chronic Pancreatitis (DC), Alcohol Use Disorder ED Add. Discharge Instructions: It is very important you attempt to establish care with a primary care physician in the area. It is also important that you seek resources to help with your alcohol use disorder. It is important that you do not abruptly cease alcohol usage as this could lead to alcohol withdrawal symptoms including seizure and even . Your abdominal pain and pancreatitis is chronic and is likely related to your long-term alcohol use. There were no lab findings today that indicate you need acute hospitalization. You have been given medications to take to help with the symptoms. All discharge instructions reviewed with patient and/or family. Voiced understanding. Scripts Ondansetron (Ondansetron Odt) 8 Mg Tab.rapdis 8 MG SL Q6H PRN for NAUSEA/VOMITING for 7 Days, #28 TAB 0 Refills Prov: BRET SOFIA APRN 03/27/22 Pantoprazole Sodium (Protonix) 40 Mg Granpkt.dr 40 MG PO DAILY for 14 Days, #14 TAB 0 Refills Prov: BRET SOFIA APRN 03/27/22 BRET SOFIA APRN Mar 27, 2022 19:25
[2022-03-27] MEDS ORDERED: morphine INJ 10 MG/ML 1ML (SYR OR VIAL) IVP STA (19:26)
[2022-03-27 19:45] LABS: ALANINE AMINOTRANSFERASE 32 U/L (0-55); ALBUMIN 4.6 GM/DL (3.2-4.5); ALKALINE PHOSPHATASE 124 U/L (40-136); BILIRUBIN,TOTAL 0.3 MG/DL (0.1-1.0); BUN/CREATININE RATIO 9; CARBON DIOXIDE 25 MMOL/L (21-32); CHLORIDE 101 MMOL/L (98-107); CREATININE SERUM 0.92 MG/DL (0.60-1.30); GFR ESTIMATED 101; GLUCOSE 104 MG/DL (70-105); LIPASE 143 U/L (8-78); POTASSIUM 4.1 MMOL/L (3.6-5.0); SODIUM 143 MMOL/L (135-145); TOTAL PROTEIN 7.8 GM/DL (6.4-8.2)
[2022-03-27] MEDS ORDERED: PANTOPRAZOLE 40 MG (PROTONIX) VIAL IV ONE (20:30)
[2022-03-27] MEDS ORDERED: PROMETHAZINE INJ 25 MG/ML (PHENERGAN) AMP IVP ONE (20:30)
[2022-03-27] MEDS ORDERED: fentaNYL INJ 100 MCG/2 ML AMP IVP ONE (20:30)
[2022-03-27] MEDS ORDERED: PANT40SU PO (21:05)
[2022-03-27] MEDS ORDERED: ONDA8TAB13 SL (21:05)
[2022-03-27 21:18] VITALS: BP 128/78
== END 2022-03-27 21:18 | disposition home or self-care (01) ==
LOC: EDUNIT# 18:59 → ER 19:02
DX: K86.0 Alcohol-induced chronic pancreatitis (principal); F10.20 Alcohol dependence, uncomplicated; R74.8 Abnormal levels of other serum enzymes; F17.210 Nicotine dependence, cigarettes, uncomplicated; Z28.310 Unvaccinated for COVID-19
CPT/HCPCS: 36415; 80053; 83690; 85025